=== PATIENT | female | born 1930 | race Caucasian/White ===

== ENCOUNTER 2017-06-18 14:48 | Inpatient (IN) | payer BC, MEDICARE ==
[~2017-06-18] VITALS: Ht 142.2 cm; Wt 51.0 kg
[2017-06-18] VITALS (11 sets, daily range): BP systolic 150–174; BP diastolic 68–103; PULSE 50–101; RESP 16–24; TEMP 97.9–98.6; O2SAT 92–97
[~2017-06-18 14:48] MED LIST: ASPI81TA45 PO; CENTTAB16 PO; COZA50TA PO; DOCU1CAP39 PO; DOXY100 PO; FERR324T PO; FURO20 PO; HYDR200T42 PO; LEVS0.124 SL; LORTA5 PO; PRED10 PO; PROT40TA PO; ROSU5 PO; SYNT88TA PO; TOPR50TA PO
[2017-06-18] MEDS ORDERED: METFORMIN HOLD POST IV CONTRAST SCH (14:51)
[2017-06-18] MEDS ORDERED: FUROSEMIDE 40 MG/4 ML VIAL IV PUSH ONE (15:30)
[2017-06-18 15:43] LABS: AUTOMATED NEUTROPHIL # 4.6 TH/MM3 (1.8-7.7); BASOPHIL % 0.3 % (0.0-2.0); EOSINOPHIL % 0.1 % (0.0-4.0); HEMATOCRIT 32.9 % (35.0-46.0); HEMO FLAGS DIFF FINAL; LYMPH % 10.4 % (9.0-44.0); LYMPHOCYTE # 0.6 TH/MM3 (1.0-4.8); MEAN CELL VOLUME 90.9 FL (80.0-100.0); MEAN CORPUSCULAR HEMOGLOBIN 30.5 PG (27.0-34.0); MEAN CORPUSCULAR HGB CONC 33.6 % (32.0-36.0); NEUT % 80.2 % (16.0-70.0); PLATELET COUNT 303 TH/MM3 (150-450); RED BLOOD COUNT 3.62 MIL/MM3 (4.00-5.30); RED CELL DISTRIBUTION WIDTH 13.6 % (11.6-17.2); WHITE BLOOD COUNT 5.7 TH/MM3 (4.0-11.0)
[2017-06-18] MEDS ORDERED: FURO40TA PO (15:51)
[2017-06-18] MEDS ORDERED: APIX2.5T PO (15:51)
[2017-06-18] MEDS ORDERED: COZA25TA PO (15:51)
[2017-06-18] MEDS ORDERED: PLAQ200T PO (15:51)
[2017-06-18] MEDS ORDERED: AMIO200T PO (15:51)
--- NOTE | 2017-06-18 15:55 | RADRPT ---
EXAM DATE/TIME: 06/18/2017 15:39 [place] COMPARISON: CHEST SINGLE AP, June 20, 2015, 4:51. INDICATIONS : Short of breath MEDICAL HISTORY : Congestive heart failure. SURGICAL HISTORY : Pacemaker. ENCOUNTER: Initial ACUITY: 3 days PAIN SCORE: 0/10 LOCATION: chest FINDINGS: A single view of the chest demonstrates the cardiac silhouette remains enlarged. Lung volumes are dim inished. There is a bipolar left subclavian pacer in good position. Aorta remains tortuous. Mild pulm onary vascular congestion.. Osseous structures are intact. CONCLUSION: The heart is slightly enlarged. Small one by. Mild pulmonary vascular congestion increased since the 2014 exam. Jamey Peters MD on June 18, 2017 at 15:52 Board Certified Radiologist. This report was verified electronically.
[2017-06-18 16:04] LABS: ALT (GPT) 38 U/L (10-53); ANION GAP 10 MEQ/L (5-15); AST (GOT) 40 U/L (15-37); BICARBONATE 23.5 MEQ/L (21.0-32.0); BLOOD UREA NITROGEN 26 MG/DL (7-18); CHLORIDE 94 MEQ/L (98-107); GLOMERULAR FILTRATION RATE 31 ML/MIN (>89); POTASSIUM 3.6 MEQ/L (3.5-5.1); SODIUM (NA) 127 MEQ/L (136-145)
[2017-06-18 16:08] LABS: ALKALINE PHOSPHATASE 108 U/L (45-117); TOTAL BILIRUBIN ADULT 0.6 MG/DL (0.2-1.0)
[2017-06-18] MEDS ORDERED: ASPIRIN 81 MG CHEW TAB CHEW ONE (16:30)
--- NOTE | 2017-06-18 17:19 | PD ---
HPI Chief Complaint: Respiratory Symptoms Time Seen by Provider: 15:02 Travel History International Travel<30 days: No Contact w/Intl Traveler<30days: No Traveled to known affect area: No History of Present Illness HPI This is an 87-year-old female who presents to the emergency department with increasing shortness of breath and lower extremity swelling that's been going on for 4 days, constant, severe to the point where she is been unable to walk a short distance without getting very short of breath. She is to sleep on multiple pillows at night. Her son took her to Dr. Krishnan's office and they increased her Lasix from 20 mg daily to 20 mg twice a day however she doesn't feel like her urine has been responding and her swelling has gotten worse. She denies any chest pain. PFSH Past Medical History Hx Anticoagulant Therapy: Yes Anemia: Yes Arthritis: Yes (OSTEOARTHRITIS) Anxiety: No Depression: No Cancer: No Cardiovascular Problems: Yes High Cholesterol: Yes Chemotherapy: No Cerebrovascular Accident: Yes Diabetes: No Diminished Hearing: No GERD: Yes (SCHOTZKI SYNDROME) Genitourinary: Yes (RETAINS URINE.SEES UROLOGIST EVERY 2 MONTHS) Hypertension: Yes Immune Disorder: Yes (Lupus) Implanted Vascular Access Dvce: No Musculoskeletal: Yes Psychiatric: No Reproductive: No Respiratory: No Immunizations Current: Yes Radiation Therapy: No Thyroid Disease: Yes Tetanus Vaccination: > 5 Years Influenza Vaccination: Yes Menopausal: Yes : 2 Para: 2 Dilation and Curettage (D&C): Yes Past Surgical History Appendectomy: Yes Cardiac Surgery: Yes (PACEMAKER- JAN 2014) Coronary Stent: Yes (X 1) Gynecologic Surgery: Yes (R ovary removed and tube removed) Pacemaker: No Other Surgery: Yes (URETHRAL DILITATION) Social History Alcohol Use: No Tobacco Use: No Substance Use: No Allergies-Medications (Allergen,Severity, Reaction): Coded Allergies: nitrofurantoin (Unverified Allergy, Severe, SWELLING, 06/18/17) nortriptyline (Unverified Allergy, Severe, RASH, 06/18/17) Reported Meds & Prescriptions Reported Meds & Active Scripts Active Reported Furosemide 40 Mg Tab 20 Mg PO BID Plaquenil (Hydroxychloroquine Sulfate) 200 Mg Tab 200 Mg PO DAILY Take with food Cozaar (Losartan Potassium) 25 Mg Tab 25 Mg PO DAILY Amiodarone (Amiodarone HCl) 200 Mg Tab 200 Mg PO DAILY Eliquis (Apixaban) 2.5 Mg Tab 2.5 Mg PO BID Review of Systems Except as stated in HPI: all other systems reviewed are Neg Physical Exam Narrative GENERAL: Frail elderly female in no acute distress SKIN: Focused skin assessment warm and dry. HEAD: Atraumatic. Normocephalic. EYES: Pupils equal and round. No injection or drainage. ENT: Moist mucous membranes NECK: Trachea midline. CARDIOVASCULAR: Regular rate and rhythm. No murmur appreciated. 2+ bilateral lower extremity pitting edema. RESPIRATORY: Tachypneic, Rales in the bilateral lung bases GASTROINTESTINAL: Abdomen soft, non-tender, nondistended. MUSCULOSKELETAL: No obvious deformities. NEUROLOGICAL: Awake and alert. No obvious cranial nerve deficits. Moving all extremities. PSYCHIATRIC: Appropriate mood and affect; insight and judgment normal. Data Data Last Documented VS Vital Signs Date Time Temp Pulse Resp B/P (MAP) Pulse Ox O2 Delivery O2 Flow Rate FiO2 06/18/17 17:04 70 158/71 (100) 96 Nasal Cannula 06/18/17 16:51 20 06/18/17 15:46 2.00 06/18/17 14:49 98.6 Orders Orders Complete Blood Count With Diff (06/18/17 15:16) Comprehensive Metabolic Panel (06/18/17 15:16) Troponin I (06/18/17 15:16) B-Type Natriuretic Peptide (06/18/17 15:16) Electrocardiogram (06/18/17 ) Chest, Single Ap (06/18/17 ) ^ Insert Iv (06/18/17 15:16) Furosemide Inj (Lasix Inj) (06/18/17 15:30) Aspirin Chew (Aspirin Chew) (06/18/17 16:30) Admit Order (Ed Use Only) (06/18/17 17:31) Labs Laboratory Tests Test 06/18/17 15:30 White Blood Count 5.7 TH/MM3 Red Blood Count 3.62 MIL/MM3 Hemoglobin 11.0 GM/DL Hematocrit 32.9 % Mean Corpuscular Volume 90.9 FL Mean Corpuscular Hemoglobin 30.5 PG Mean Corpuscular Hemoglobin Concent 33.6 % Red Cell Distribution Width 13.6 % Platelet Count 303 TH/MM3 Mean Platelet Volume 8.0 FL Neutrophils (%) (Auto) 80.2 % Lymphocytes (%) (Auto) 10.4 % Monocytes (%) (Auto) 9.0 % Eosinophils (%) (Auto) 0.1 % Basophils (%) (Auto) 0.3 % Neutrophils # (Auto) 4.6 TH/MM3 Lymphocytes # (Auto) 0.6 TH/MM3 Monocytes # (Auto) 0.5 TH/MM3 Eosinophils # (Auto) 0.0 TH/MM3 Basophils # (Auto) 0.0 TH/MM3 CBC Comment DIFF FINAL Differential Comment Blood Urea Nitrogen 26 MG/DL Creatinine 1.58 MG/DL Random Glucose 164 MG/DL Total Protein 6.7 GM/DL Albumin 3.4 GM/DL Calcium Level 8.2 MG/DL Alkaline Phosphatase 108 U/L Aspartate Amino Transf (AST/SGOT) 40 U/L Alanine Aminotransferase (ALT/SGPT) 38 U/L Total Bilirubin 0.6 MG/DL Sodium Level 127 MEQ/L Potassium Level 3.6 MEQ/L Chloride Level 94 MEQ/L Carbon Dioxide Level 23.5 MEQ/L Anion Gap 10 MEQ/L Estimat Glomerular Filtration Rate 31 ML/MIN Troponin I 0.13 NG/ML B-Type Natriuretic Peptide 1846 PG/ML MDM Medical Decision Making Medical Screen Exam Complete: Yes Emergency Medical Condition: Yes Interpretation(s) Hypertension, hypoxia mild anemia hyponatremia renal insufficiency troponin .13 similar to prior bnp 1846 elevated from prior Last 24 hours Impressions Chest X-Ray 06/18/17 0000 Signed Impressions: Service Date/Time: Sunday, June 18, 2017 15:39 - CONCLUSION: The heart is slightly enlarged. Small one by. Mild pulmonary vascular congestion increased since the 2014 exam. Jamey Peters MD Differential Diagnosis congestive heart failure, myocardial infarction, electrolyte abnormality Narrative Course This is an 87-year-old female who presents to the emergency department with congestive heart failure exacerbation. She comes in with worsening dyspnea on exertion despite having increased her diuretic earlier this week. Labs demonstrate renal insufficiency, a BNP of 1800, and a chronic troponin elevation. She also is hyponatremic and the patient is weak and has poor exertional tolerance and energy. She was given 40 mg of IV Lasix in the emergency department. She will be admitted for continued volume and electrolyte management. Physician Communication Physician Communication Discussed with Dr. north Diagnosis Primary Impression: Hyponatremia Additional Impression: Congestive heart failure Qualified Codes: I50.9 - Heart failure, unspecified Admitting Information Admitting Physician Requests: it Jaz Ivy MD Jun 18, 2017 17:19
[2017-06-18] MEDS ORDERED: SODIUM CHLORIDE 0.9% FLUSH 10 ML FLUSH IV FLUSH PRN (17:45)
--- NOTE | 2017-06-18 18:43 | HHI.HP ---
[facility] Bruno Seymour MD Admission Diagnosis volume overload, hyponatremia Diagnoses: Chief Complaint: Fluid overload, shortness of breath Travel History International Travel<30 Days: No Contact w/Intl Traveler <30 Da: No Traveled to Known Affected Are: No History of Present Illness 87-year-old female with a medical history significant for coronary artery disease status post stent placement, atrial fibrillation, pacemaker placement, CHF, osteoarthritis, hypertension, and lupus. The patient presented to the hospital with increasing bilateral lower extremity swelling, weight gain, shortness of breath, extreme weakness to the point that she is unable to walk without getting severely short of breath. She is using multiple pillows at night. For the past few weeks, she has been having issues with worsening upper back pain. She has seen her primary care doctor who ordered an x-ray but she does not know the results. Her primary care physician increased her Lasix to 20 mg twice a day but she did not respond to it and continued to have scant urination, increasing swelling and shortness of breath. Workup in the emergency room revealed BNP of 1800. Chest X-ray consistent with heart failure. Patient also found to be hyponatremic. The patient's son was present for the evaluation. Review of Systems Constitutional: COMPLAINS OF: Weight gain, DENIES: Fever, Chills Respiratory: COMPLAINS OF: Shortness of breath, DENIES: Cough Cardiovascular: COMPLAINS OF: Dyspnea on Exertion, Lower Extremity Edema, Orthopnea, DENIES: Chest pain, Palpitations Gastrointestinal: DENIES: Nausea, Vomiting Genitourinary: DENIES: Dysuria Musculoskeletal: COMPLAINS OF: Joint pain, Back pain Except as stated in HPI: all other systems reviewed are Neg Past Family Social History Past Medical History Coronary artery disease status post stent placement Pacemaker placement Atrial fibrillation Osteoarthritis Lupus Urinary retention requiring urethral dilation every couple of months Hypertension Past Surgical History Appendectomy Pacemaker placement Resection of an ovarian abnormality. Reported Medications Reported Meds & Active Scripts Active Reported Furosemide 40 Mg Tab 20 Mg PO BID Plaquenil (Hydroxychloroquine Sulfate) 200 Mg Tab 200 Mg PO DAILY Take with food Cozaar (Losartan Potassium) 25 Mg Tab 25 Mg PO DAILY Amiodarone (Amiodarone HCl) 200 Mg Tab 200 Mg PO DAILY Eliquis (Apixaban) 2.5 Mg Tab 2.5 Mg PO BID Allergies: Coded Allergies: nitrofurantoin (Unverified Allergy, Severe, SWELLING, 06/18/17) nortriptyline (Unverified Allergy, Severe, RASH, 06/18/17) Family History Reviewed and found to be noncontributory. Social History No history of tobacco or alcohol use. Physical Exam Vital Signs Vital Signs Date Time Temp Pulse Resp B/P (MAP) Pulse Ox O2 Delivery O2 Flow Rate FiO2 06/18/17 17:04 70 158/71 (100) 96 Nasal Cannula 06/18/17 16:51 50 20 161/74 (103) 96 Room Air 06/18/17 16:50 96 06/18/17 15:46 82 24 174/83 (113) 93 Nasal Cannula 2.00 06/18/17 15:20 85 79 97 Nasal Cannula 2.00 06/18/17 15:20 82 20 173/75 (107) 97 Nasal Cannula 2.00 06/18/17 14:49 98.6 81 20 162/68 (99) 92 Physical Exam GENERAL: Elderly and frail female. Gets short of breath with long sentences. SKIN: No rashes, ecchymoses or lesions. Cool and dry. HEAD: Atraumatic. Normocephalic. No temporal or scalp tenderness. EYES: Pupils equal round and reactive. Extraocular motions intact. No scleral icterus. No injection or drainage. ENT: Nose without drainage. Throat without erythema, tonsillar hypertrophy or exudate. Uvula midline. Airway patent. NECK: Trachea midline. No JVD or lymphadenopathy. Supple, nontender, no meningeal signs. CARDIOVASCULAR: Regular rate and rhythm. 3/6 EMMIE best heard at the apex. RESPIRATORY: Good respiratory effort. Bilateral basal crackles otherwise clear to auscultation. No wheezing. GASTROINTESTINAL: Abdomen soft, non-tender, nondistended. No hepato-splenomegaly , or palpable masses. No guarding. MUSCULOSKELETAL: 2+ bilateral lower extremity edema. No calf tenderness. Negative Homans sign bilaterally. Scoliosis noted. Some tenderness to palpation over the paraspinous muscles along the thoracic area. NEUROLOGICAL: Awake and alert. Cranial nerves II through XII intact. Motor and sensory grossly within normal limits. Five out of 5 muscle strength in all muscle groups. Normal speech. Laboratory Laboratory Tests Test 06/18/17 15:30 White Blood Count 5.7 Red Blood Count 3.62 Hemoglobin 11.0 Hematocrit 32.9 Mean Corpuscular Volume 90.9 Mean Corpuscular Hemoglobin 30.5 Mean Corpuscular Hemoglobin Concent 33.6 Red Cell Distribution Width 13.6 Platelet Count 303 Mean Platelet Volume 8.0 Neutrophils (%) (Auto) 80.2 Lymphocytes (%) (Auto) 10.4 Monocytes (%) (Auto) 9.0 Eosinophils (%) (Auto) 0.1 Basophils (%) (Auto) 0.3 Neutrophils # (Auto) 4.6 Lymphocytes # (Auto) 0.6 Monocytes # (Auto) 0.5 Eosinophils # (Auto) 0.0 Basophils # (Auto) 0.0 CBC Comment DIFF FINAL Differential Comment Blood Urea Nitrogen 26 Creatinine 1.58 Random Glucose 164 Total Protein 6.7 Albumin 3.4 Calcium Level 8.2 Alkaline Phosphatase 108 Aspartate Amino Transf (AST/SGOT) 40 Alanine Aminotransferase (ALT/SGPT) 38 Total Bilirubin 0.6 Sodium Level 127 Potassium Level 3.6 Chloride Level 94 Carbon Dioxide Level 23.5 Anion Gap 10 Estimat Glomerular Filtration Rate 31 Troponin I 0.13 B-Type Natriuretic Peptide 1846 Result Diagram: 06/18/17 1530 06/18/17 1530 Imaging Last Impressions Chest X-Ray 06/18/17 0000 Signed Impressions: Service Date/Time: Sunday, June 18, 2017 15:39 - CONCLUSION: The heart is slightly enlarged. Small one by. Mild pulmonary vascular congestion increased since the 2014 exam. MD Zari Hookeri VTE Risk Assessment Caprini VTE Risk Assessment: Mod/High Risk (score >= 2) Caprini Risk Assessment Model Point Value = 1 Point Value = 2 Point Value = 3 Point Value = 5 Age 41-60 Minor surgery BMI > 25 kg/m2 Swollen legs Varicose veins or History of unexplained or recurrent spontaneous Oral contraceptives or hormone replacement Sepsis (< 1 month) Serious lung disease, including pneumonia (< 1 month) Abnormal pulmonary function Acute myocardial infarction Congestive heart failure (< 1 month) History of inflammatory bowel disease Medical patient at bed rest Age 61-74 Arthroscopic surgery Major open surgery (> 45 min) Laparoscopic surgery (> 45 min) Malignancy Confined to bed (> 72 hours) Immobilizing plaster cast Central venous access Age >= 75 History of VTE Family history of VTE Factor V Leiden Prothrombin [id number] Lupus anticoagulant Anticardiolipin antibodies Elevated serum homocysteine Heparin-induced thrombocytopenia Other congenital or acquired thrombophilia Stroke (< 1 month) Elective arthroplasty Hip, pelvis, or leg fracture Acute spinal cord injury (< 1 month) Prophylaxis Regimen Total Risk Factor Score Risk Level Prophylaxis Regimen 0-1 Low Early ambulation 2 Moderate Order ONE of the following: *Sequential Compression Device (SCD) *Heparin 5000 units SQ BID 3-4 Higher Order ONE of the following medications: *Heparin 5000 units SQ TID *Enoxaparin/Lovenox 40 mg SQ daily (WT < 150 kg, CrCl > 30 mL/min) *Enoxaparin/Lovenox 30 mg SQ daily (WT < 150 kg, CrCl > 10-29 mL/min) *Enoxaparin/Lovenox 30 mg SQ BID (WT < 150 kg, CrCl > 30 mL/min) AND/OR *Sequential Compression Device (SCD) 5 or more Highest Order ONE of the following medications: *Heparin 5000 units SQ TID (Preferred with Epidurals) *Enoxaparin/Lovenox 40 mg SQ daily (WT < 150 kg, CrCl > 30 mL/min) *Enoxaparin/Lovenox 30 mg SQ daily (WT < 150 kg, CrCl > 10-29 mL/min) *Enoxaparin/Lovenox 30 mg SQ BID (WT < 150 kg, CrCl > 30 mL/min) AND *Sequential Compression Device (SCD) Assessment and Plan Problem List: (1) Acute on chronic systolic heart failure ICD Code: I50.23 - Acute on chronic systolic (congestive) heart failure (2) Hyponatremia ICD Code: E87.1 - Hyponatremia Status: Acute (3) Back pain ICD Code: M54.9 - Dorsalgia, unspecified Status: Acute (4) Lupus (systemic lupus erythematosus) ICD Code: M32.9 - Lupus (systemic lupus erythematosus) Status: Acute (5) Hypertension ICD Code: I10 - Hypertension Status: Acute (6) Generalized weakness ICD Code: R53.1 - Generalized weakness Status: Acute Assessment and Plan 87-year-old female being admitted for acute on chronic systolic CHF exacerbation , hyponatremia, and fluid overload. Acute on chronic systolic CHF exacerbation: Last documented EF in the EMR in the EMR in 2015 was 45%. Increasing edema, weight gain and worsening shortness of breath. BNP 1800 on admission. Chest x-ray consistent with CHF - IV Lasix 40 mg twice a day. - Strict I/O - Continue losartan. - Consult the patient's coding quality coordinator, Dr. Horan for assistance. History of atrial fibrillation/pacemaker placement. - Continue Eliquis. On amiodarone. - Cardiology consulted as above. She states her pacemaker was interrogated about a month ago. Defer to cardiology. Hyponatremia: Likely hypervolemic hyponatremia secondary to CHF - Fluid restriction as above. - Continue to trend. Acute on chronic upper back pain: Patient reports more pain in the upper thoracic region. Likely related to osteoarthritis and degenerative joint disease. - Pain control. - Will reassess if further imaging is needed once she is feeling a little better from the cardiac standpoint. Patient reportedly had x-rays at [facility] but ER physician, Dr. Dhaliwal searched for me but couldn't find them. - PT to evaluate. Lupus: Continue hydroxychloroquine. GI prophylaxis: Stool softener PRN constipation. DVT PPx: Eliquis Code Status DNR. Discussed with patient and her son. Discussed Condition With ER physician, Dr. Ivy DW patient's son at bedside Physician Certification 2 Midnight Certification Type: Admission for Inpatient Services Order for Inpatient Services The services are ordered in accordance with Medicare regulations or non- Medicare payer requirements, as applicable. In the case of services not specified as inpatient-only, they are appropriately provided as inpatient services in accordance with the 2-midnight benchmark. Estimated LOS (days): 3 days is the estimated time the patient will need to remain in the hospital, assuming treatment plan goals are met and no additional complications. Post-Hospital Plan: Not yet determined Valery Morales MD Jun 18, 2017 18:43
[2017-06-18] MEDS ORDERED: SENNOSIDES 8.6 MG TAB PO PRN (18:45)
[2017-06-18] MEDS ORDERED: MAGNESIUM HYDROXIDE SUSP 30 ML CUP PO PRN (18:45)
[2017-06-18] MEDS ORDERED: BISACODYL 10 MG SUPP RECTAL PRN (18:45)
[2017-06-18] MEDS ORDERED: LACTULOSE SYRUP 20 GM/30 ML CUP PO PRN (18:45)
[2017-06-18] MEDS ORDERED: ACETAMINOPHEN 325 MG TAB PO PRN (19:45)
[2017-06-18] MEDS: DOCUSATE SODIUM 50 MG/SENNA 8.6 MG TAB PO SCH (20:52)
[2017-06-18] MEDS: POTASSIUM CHLORIDE 20 MEQ CONTROLLED RELEASE TAB PO SCH (20:52)
[2017-06-18] MEDS: APIXABAN 2.5 MG TABLET PO SCH (22:00)
[2017-06-18] MEDS: SODIUM CHLORIDE 0.9% FLUSH 10 ML FLUSH IV FLUSH SCH (22:00)
[2017-06-18] MEDS: FUROSEMIDE 40 MG/4 ML VIAL IV PUSH SCH (23:12)
[2017-06-19] VITALS (9 sets, daily range): BP systolic 105–147; BP diastolic 54–70; PULSE 71–81; RESP 16–18; TEMP 96.3–97.7; O2SAT 94–98
[2017-06-19 06:05] LABS: BICARBONATE 30.9 MEQ/L (21.0-32.0); POTASSIUM 3.5 MEQ/L (3.5-5.1)
--- NOTE | 2017-06-19 08:39 | MB ---
cc: ZENY LEZAMA MD DATE OF CONSULTATION 06/19/2017 HISTORY This is an 87-year-old woman who was admitted to the hospital with increasing shortness of breath. This has been present for at least the past 10 days to several weeks. She noticed that her weight had been steadily increasing and on Monday notes that she had significant pedal edema. She was seen by her primary care physician who recommended increasing her Lasix to 20 mg twice a day. She did this without any significant change in symptoms and came to the emergency room. In the emergency room she was noted to have significant pedal edema as well as evidence for heart failure on chest x-ray. She has a history of coronary artery disease with PTCA and stenting in the past. She also as an outpatient has been noted to have significant cardiomyopathy with low ejection fraction although no overt failure has been present in the past. She has been told that her electrolytes are abnormal and over the past 2 weeks has been drinking quite a bit of Gatorade to help try to correct that. No chest pain has been present. She has noted some chronic back pain which has been felt to be musculoskeletal secondary to her T-spine. An x-ray at this was also done recently but the results of those are not known to her. PAST MEDICAL HISTORY Otherwise significant for pacemaker implantation. Chronic atrial fibrillation ALLERGIES NITROFURANTOIN. NORTRIPTYLINE. MEDICATIONS 1. Lasix 20 mg twice a day. 2. Plaquenil 200 mg daily. 3. Losartan 25 mg daily. 4. Amiodarone 200 daily. 5. Apixaban 2.5 mg twice a day. PHYSICAL EXAMINATION GENERAL: She is awake and alert. She is in no acute distress. VITAL SIGNS: Her blood pressure is 140/60, pulse is 76 and regular. NECK: There is no neck vein distension. LUNGS: Crackles in both bases. CARDIOVASCULAR: Exam reveals a regular rate and rhythm. There is no murmur. EXTREMITIES: +1 pedal edema. ASSESSMENT AND PLAN 1. She has evidence for congestive failure. She will be given Lasix 40 mg IV b.i.d. and thus far has had a good diuresis. 2. She does have some renal insufficiency and this has actually improved as has her sodium. 3. We will continue present medical regimen. MD JOSELO Kathleen/SSB /8:15 AM /8:27 AM
[2017-06-19] MEDS: DOCUSATE SODIUM 50 MG/SENNA 8.6 MG TAB PO SCH (09:00)
[2017-06-19] MEDS ORDERED: ULOR40TA PO (10:27)
[2017-06-19] MEDS: APIXABAN 2.5 MG TABLET PO SCH (10:30)
[2017-06-19] MEDS: LOSARTAN 25 MG TAB PO SCH (10:30)
[2017-06-19] MEDS: AMIODARONE 200 MG TAB PO SCH (10:31)
[2017-06-19] MEDS: POTASSIUM CHLORIDE 20 MEQ CONTROLLED RELEASE TAB PO SCH (10:31)
[2017-06-19] MEDS: HYDROXYCHLOROQUINE SULFATE 200 MG TAB PO SCH (10:31)
[2017-06-19] MEDS: FUROSEMIDE 40 MG/4 ML VIAL IV PUSH SCH ×2 (10:32→18:29)
[2017-06-19] MEDS: SODIUM CHLORIDE 0.9% FLUSH 10 ML FLUSH IV FLUSH SCH ×2 (10:32→21:00)
--- NOTE | 2017-06-19 13:44 | HHI.PR ---
Subjective Remarks Patient reports she is feeling better. Responding to diuresis. No chest pressure. Objective Vitals Vital Signs Date Time Temp Pulse Resp B/P (MAP) Pulse Ox O2 Delivery O2 Flow Rate FiO2 06/19/17 12:50 94 21 06/19/17 12:00 97.1 81 18 124/54 (77) 94 06/19/17 08:00 96.3 80 16 147/70 (95) 94 06/19/17 04:32 97.7 76 17 140/64 (89) 96 06/19/17 00:08 97.4 78 17 136/69 (91) 96 06/18/17 20:59 97.9 77 18 156/74 (101) 96 06/18/17 20:53 80 16 161/74 (103) 97 Nasal Cannula 1.00 06/18/17 19:30 82 16 162/77 (105) 96 Nasal Cannula 1.00 06/18/17 18:23 96 Nasal Cannula 1.00 06/18/17 17:04 70 158/71 (100) 96 Nasal Cannula 06/18/17 16:51 50 20 161/74 (103) 96 Room Air 06/18/17 16:50 96 06/18/17 15:46 82 24 174/83 (113) 93 Nasal Cannula 2.00 06/18/17 15:20 85 79 97 Nasal Cannula 2.00 06/18/17 15:20 82 20 173/75 (107) 97 Nasal Cannula 2.00 06/18/17 14:49 98.6 81 20 162/68 (99) 92 I/O 06/18/17 06/18/17 06/18/17 06/19/17 06/19/17 06/19/17 07:00 15:00 23:00 07:00 15:00 23:00 Intake Total 120 ml Output Total 1900 ml Balance -1780 ml Intake Oral 120 ml Output Urine Total 1900 ml # Voids 1 # Bowel Movements 0 Result Diagram: 06/18/17 1530 06/19/17 0438 Objective Remarks GENERAL: Elderly and frail female in no apparent distress. CARDIOVASCULAR: Normal rate and regular rhythm without murmurs, gallops, or rubs. RESPIRATORY: Good respiratory efforts. Bibasal crackles GASTROINTESTINAL: Abdomen soft, non-tender, non-distended. Normal active bowel sounds MUSCULOSKELETAL: Extremities with 1+ bilateral lower extremity edema NEURO: Alert & Oriented x4 to person, place, time, situation. Moves all ext x4 PSYCH: Appropriate mood and affect. A/P Problem List: (1) Acute on chronic systolic heart failure ICD Code: I50.23 - Acute on chronic systolic (congestive) heart failure (2) Hyponatremia ICD Code: E87.1 - Hyponatremia Status: Acute (3) Back pain ICD Code: M54.9 - Dorsalgia, unspecified Status: Acute (4) Lupus (systemic lupus erythematosus) ICD Code: M32.9 - Lupus (systemic lupus erythematosus) Status: Acute (5) Hypertension ICD Code: I10 - Hypertension Status: Acute (6) Generalized weakness ICD Code: R53.1 - Generalized weakness Status: Acute Assessment and Plan 87-year-old female being admitted for acute on chronic systolic CHF exacerbation , hyponatremia, and fluid overload. Acute on chronic systolic CHF exacerbation: Last documented EF in the EMR in the EMR in 2014 was 45%. Increasing edema, weight gain and worsening shortness of breath. BNP 1800 on admission. Chest x-ray consistent with CHF - IV Lasix 40 mg twice a day. - Strict I/O - Continue losartan. -Appreciate roll off driver, Dr. Horan assistance. Continue diuresis. History of atrial fibrillation/pacemaker placement. - Continue Eliquis. On amiodarone. - Cardiology following Hyponatremia: Likely hypervolemic hyponatremia secondary to CHF - Fluid restriction as above. - Improving. Continue to trend. Acute on chronic upper back pain: Patient reports more pain in the upper thoracic region. Likely related to osteoarthritis and degenerative joint disease. - Pain control. Start low-dose [place]. - Will reassess if further imaging is needed once she is feeling a little better from the cardiac standpoint. - PT to evaluate. Lupus: Continue hydroxychloroquine. GI prophylaxis: Stool softener PRN constipation. DVT PPx: Valery Galo MD Jun 19, 2017 13:44
[2017-06-19] MEDS: PANTOPRAZOLE SOD 40 MG DELAYED RELEASE TAB PO SCH (14:47)
--- NOTE | 2017-06-19 17:11 | EKG ---
Date Performed: 06/18/2017 Time Performed: 15:30:06 PTAGE: 87 years EKG: ELECTRONIC ATRIAL PACEMAKER ELECTRONIC VENTRICULAR PACEMAKER Since previous tracing, no sig nificant change noted ABNORMAL RHYTHM ECG PREVIOUS TRACING : 06/18/2015 06.59 DOCTOR: Vishal Flanagan Interpretating Date/Time 06/19/2017 17:10:05
[2017-06-19] MEDS: ACETAMINOPHEN/HYDROcodone 325 MG/5 MG TAB PO PRN (19:04)
[2017-06-20] VITALS (9 sets, daily range): BP systolic 95–146; BP diastolic 47–57; PULSE 71–81; RESP 16–18; TEMP 96.5–98; O2SAT 96–100
[2017-06-20] MEDS: POTASSIUM CHLORIDE 20 MEQ CONTROLLED RELEASE TAB PO SCH ×3 (00:05→19:59)
[2017-06-20] MEDS: DOCUSATE SODIUM 50 MG/SENNA 8.6 MG TAB PO SCH ×3 (00:05→19:58)
[2017-06-20] MEDS: APIXABAN 2.5 MG TABLET PO SCH ×3 (00:06→19:58)
--- NOTE | 2017-06-20 07:38 | PD.CARD.PN ---
Subjective Subjective Remarks Back pain present this morning. Relieved with pain meds last night. Breathing improved. Objective Medications Current Medications Medications (Trade) Dose Ordered Sig/Harley Route Start Time Stop Time Status Last Admin (Cordarone) 200 mg DAILY PO 06/19/17 09:00 06/19/17 10:31 (Eliquis) 2.5 mg BID PO 06/18/17 21:00 06/20/17 00:06 (Plaquenil) 200 mg DAILY PO 06/19/17 09:00 06/19/17 10:31 (Cozaar) 25 mg DAILY PO 06/19/17 09:00 06/19/17 10:30 (NS Flush) 2 ml BID IV FLUSH 06/18/17 21:00 06/19/17 21:00 (NS Flush) 2 ml UNSCH PRN IV FLUSH 06/18/17 17:45 (KCl) 20 meq BID PO 06/18/17 21:00 06/20/17 00:05 (Lasix Inj) 40 mg BID@,18 IV PUSH 06/18/17 23:00 06/19/17 18:29 (Maye-Colace) 1 tab BID PO 06/18/17 21:00 06/20/17 00:05 (Milk Of Magnesia Liq) 30 ml Q12H PRN PO 06/18/17 18:45 (Senokot) 17.2 mg Q12H PRN PO 06/18/17 18:45 (Dulcolax Supp) 10 mg DAILY PRN RECTAL 06/18/17 18:45 (Lactulose Liq) 30 ml DAILY PRN PO 06/18/17 18:45 (Tylenol) 650 mg Q4H PRN PO 06/18/17 19:45 06/18/17 20:52 ([place] 5-325 Mg) 1 tab Q6H PRN PO 06/19/17 11:15 06/19/17 19:04 (Protonix) 40 mg DAILY PO 06/19/17 13:45 06/19/17 14:47 (Miralax) 17 gm DAILY PO 06/20/17 09:00 Vital Signs / I&O Vital Signs Date Time Temp Pulse Resp B/P (MAP) Pulse Ox O2 Delivery O2 Flow Rate FiO2 06/20/17 04:00 97.6 76 18 145/57 (86) 97 06/20/17 00:00 98.0 78 18 138/55 (82) 100 06/19/17 20:00 97.0 79 18 128/56 (80) 98 06/19/17 17:49 94 Nasal Cannula 21 06/19/17 16:00 97.1 80 18 105/60 (75) 96 06/19/17 12:50 94 21 06/19/17 12:00 97.1 81 18 124/54 (77) 94 06/19/17 10:25 71 06/19/17 08:00 96.3 80 16 147/70 (95) 94 I/O 06/19/17 06/19/17 06/19/17 06/20/17 06/20/17 06/20/17 07:00 15:00 23:00 07:00 15:00 23:00 Intake Total 120 ml 240 ml Output Total 1900 ml 1100 ml 1450 ml Balance -1780 ml -860 ml -1450 ml Intake Oral 120 ml 240 ml Output Urine Total 1900 ml 1100 ml 1450 ml # Bowel Movements 0 1 Physical Exam Lungs clear RRR no murmur Assessment and Plan Assessment and Plan Good diuresis. Clinically improved. Will check BMP and chest x-ray Hector Horan MD Jun 20, 2017 07:38
[2017-06-20] MEDS: SODIUM CHLORIDE 0.9% FLUSH 10 ML FLUSH IV FLUSH SCH ×2 (09:00→19:57)
--- NOTE | 2017-06-20 09:00 | RADRPT ---
EXAM DATE/TIME: 06/20/2017 08:02 [place] COMPARISON: CHEST SINGLE AP, June 18, 2017, 15:39. INDICATIONS : Congestive heart failure. MEDICAL HISTORY : Congestive heart failure. SURGICAL HISTORY : Pacemaker. ENCOUNTER: Subsequent ACUITY: 4 - 6 days PAIN SCORE: 0/10 LOCATION: Bilateral chest FINDINGS: A single view of the chest demonstrates the cardiac silhouette remains widened. The aorta is quite to rtuous. The left subclavian bipolar pacer in good position. Mild pulmonary vascular congestion. Indis tinctness of both hemidiaphragms suggestive of small pleural effusions. No visible pneumothorax. Oss eous structures are intact. CONCLUSION: Mild pulmonary vascular congestion remains. Jamey Peters MD on June 20, 2017 at 8:56 Board Certified Radiologist. This report was verified electronically.
[2017-06-20] MEDS: HYDROXYCHLOROQUINE SULFATE 200 MG TAB PO SCH (09:21)
[2017-06-20] MEDS: PANTOPRAZOLE SOD 40 MG DELAYED RELEASE TAB PO SCH (09:21)
[2017-06-20] MEDS: POLYETHYLENE GLYCOL 17 GM PKG PO SCH (09:21)
[2017-06-20] MEDS: LOSARTAN 25 MG TAB PO SCH (09:21)
[2017-06-20] MEDS: FUROSEMIDE 40 MG/4 ML VIAL IV PUSH SCH ×2 (09:21→18:27)
[2017-06-20] MEDS: AMIODARONE 200 MG TAB PO SCH (09:25)
[2017-06-20] MEDS: ACETAMINOPHEN/HYDROcodone 325 MG/5 MG TAB PO PRN (09:46)
--- NOTE | 2017-06-20 10:03 | HHI.PR ---
Subjective Remarks Feeling better. Back pain controlled. No SOB at rest. No chest pain. Admits that she needs assistance with activities. PT recs rehab. Objective Vitals Vital Signs Date Time Temp Pulse Resp B/P (MAP) Pulse Ox O2 Delivery O2 Flow Rate FiO2 06/20/17 08:00 97.2 71 16 146/55 (85) 99 06/20/17 04:00 97.6 76 18 145/57 (86) 97 06/20/17 00:00 98.0 78 18 138/55 (82) 100 06/19/17 20:00 97.0 79 18 128/56 (80) 98 06/19/17 17:49 94 Nasal Cannula 21 06/19/17 16:00 97.1 80 18 105/60 (75) 96 06/19/17 12:50 94 21 06/19/17 12:00 97.1 81 18 124/54 (77) 94 06/19/17 10:25 71 I/O 06/19/17 06/19/17 06/19/17 06/20/17 06/20/17 06/20/17 07:00 15:00 23:00 07:00 15:00 23:00 Intake Total 120 ml 240 ml Output Total 1900 ml 1100 ml 1450 ml Balance -1780 ml -860 ml -1450 ml Intake Oral 120 ml 240 ml Output Urine Total 1900 ml 1100 ml 1450 ml # Bowel Movements 0 1 Result Diagram: 06/18/17 1530 06/19/17 0438 Objective Remarks GENERAL: Elderly and frail female in no apparent distress. CARDIOVASCULAR: Normal rate and regular rhythm without murmurs, gallops, or rubs. RESPIRATORY: Good respiratory efforts. Bibasal crackles GASTROINTESTINAL: Abdomen soft, non-tender, non-distended. Normal active bowel sounds MUSCULOSKELETAL: Extremities with 1+ bilateral lower extremity edema NEURO: Alert & Oriented x4 to person, place, time, situation. Moves all ext x4 PSYCH: Appropriate mood and affect. A/P Problem List: (1) Acute on chronic systolic heart failure ICD Code: I50.23 - Acute on chronic systolic (congestive) heart failure (2) Hyponatremia ICD Code: E87.1 - Hyponatremia Status: Acute (3) Back pain ICD Code: M54.9 - Dorsalgia, unspecified Status: Acute (4) Lupus (systemic lupus erythematosus) ICD Code: M32.9 - Lupus (systemic lupus erythematosus) Status: Acute (5) Hypertension ICD Code: I10 - Hypertension Status: Acute (6) Generalized weakness ICD Code: R53.1 - Generalized weakness Status: Acute Assessment and Plan 87-year-old female being admitted for acute on chronic systolic CHF exacerbation , hyponatremia, and fluid overload. Acute on chronic systolic CHF exacerbation: Last documented EF in the EMR in the EMR in 2014 was 45%. Increasing edema, weight gain and worsening shortness of breath. BNP 1800 on admission. Chest x-ray consistent with CHF. Responding to diuretics. - IV Lasix 40 mg twice a day. - Strict I/O - Continue losartan. - Appreciate mill tender washing, Dr. Horan assistance. Continue diuresis. - Continue IV diuretics for one more day. Can probably transition to PO in AM and DC to rehab. History of atrial fibrillation/pacemaker placement. - Continue Eliquis. On amiodarone. - Cardiology following Hyponatremia: Likely hypervolemic hyponatremia secondary to CHF - Fluid restriction as above. - Improving. Continue to trend. Acute on chronic upper back pain: Patient reports more pain in the upper thoracic region. Likely related to osteoarthritis and degenerative joint disease. - Pain controlled with low-dose [place]. - Continue PT. Outpatient F/U Lupus: Continue hydroxychloroquine. GI prophylaxis: Stool softener PRN constipation. DVT PPx: Eliquis Discharge Planning Probable DC tomorrow to [place] vs SNF. CM consulted. Valery Morales MD Jun 20, 2017 10:03
[2017-06-20 12:33] LABS: BICARBONATE 30.4 MEQ/L (21.0-32.0); POTASSIUM 3.7 MEQ/L (3.5-5.1)
--- NOTE | 2017-06-20 17:49 | ECHRPT ---
Indication: Heart Failure CONCLUSIONS Mildly dilated left ventricle. The left ventricular systolic function is qgqghivx-zs-bioqsbq reduced with an estimated ejection fra ction in the range of 35-40%. Mild mitral valve regurgitation. Hwve-ab-nvzbcnhk aortic valve regurgitation. There is moderate tricuspid regurgitation. There is estimated zegotykx-nk-mmyrtj pulmonary hypertension present (61 mmHg). BP: 147 / 70 HR: 80 Rhythm: MEASUREMENTS (Male / Female) Normal Values Technical Quality:Good 2D ECHO LV Diastolic Diameter PLAX 4.9 cm 4.2 - 5.9 / 3.9 - 5.3 cm LV Systolic Diameter PLAX 4.1 cm IVS Diastolic Thickness 1.0 cm 0.6 - 1.0 / 0.6 - 0.9 cm LVPW Diastolic Thickness 0.6 cm 0.6 - 1.0 / 0.6 - 0.9 cm LV Relative Wall Thickness 0.3 RV Internal Dim ED PLAX 2.1 cm LA Systolic Diameter LX 4.6 cm 3.0 - 4.0 / 2.7 - 3.8 cm LV Ejection Fraction MOD 4C 33.6 % LV Cardiac Index MOD 4C 2200.7 cm/minm LV Ejection Fraction 4C AL 34.2 % LV Cardiac Index 4C AL 2430.3 cm/minm M-MODE Aortic Root Diameter MM 3.3 cm AV Cusp Separation MM 1.8 cm DOPPLER AV Peak Velocity 131.0 cm/s AV Peak Gradient 6.9 mmHg AI Peak Velocity 414.0 cm/s AI Peak Gradient 68.6 mmHg AI Pressure Half Time 317.0 ms LVOT Peak Velocity 75.0 cm/s LVOT Peak Gradient 2.3 mmHg MV Peak Velocity 130.0 cm/s MV Peak Gradient 6.8 mmHg MV Mean Velocity 74.9 cm/s MV Mean Gradient 3.0 mmHg Mitral E Point Velocity 114.0 cm/s Mitral A Point Velocity 52.8 cm/s Mitral E to A Ratio 2.2 TR Peak Velocity 356.0 cm/s TR Peak Gradient 50.7 mmHg Right Atrial Pressure 10.0 mmHg Pulmonary Artery Systolic Pressu 60.7 mmHg Right Ventricular Systolic Press 60.7 mmHg FINDINGS LEFT VENTRICLE Mildly dilated left ventricle. Wall thickness is normal. The left ventricular systolic function is drevqzaw-am-bbbkyfq reduced with an estimated ejection fra ction in the range of 35-40%. RIGHT VENTRICLE The right ventricular size is normal. The right ventricular systoilc function is mildly decreased. LEFT ATRIUM The left atrial size is mildly dilated. RIGHT ATRIUM The right atrial size is normal. ATRIAL SEPTUM Normal atrial septal thickness. AORTA The aortic root and proximal ascending aorta are normal in size on limited imaging. MITRAL VALVE Mild thickening of the mitral valve leaflets. Moderate mitral annular calcification. Mild mitral valve regurgitation. No mitral valve stenosis. AORTIC VALVE Trileaflet aortic valve. Jbkr-sx-sbzknsxs aortic valve regurgitation. Aortic valve sclerosis is present. No aortic valve stenosis. TRICUSPID VALVE Structurally normal tricuspid valve. There is moderate tricuspid regurgitation. No tricuspid valve stenosis. There is estimated rvezqdmr-dr-zjvzqf pulmonary hypertension present (61 mmHg). PULMONARY VALVE No pulmonary valve regurgitation or stenosis. VESSELS The inferior vena cava is normal in size. PERICARDIUM There is a trivial pericardial effusion present. Jan Gomez DO (Electronically Signed) Final Date:20 June 2017 17:47
[2017-06-21] VITALS (14 sets, daily range): BP systolic 100–135; BP diastolic 43–62; PULSE 68–85; RESP 16–20; TEMP 96.4–98.2; O2SAT 95–97
--- NOTE | 2017-06-21 07:55 | PD.CARD.PN ---
Subjective Subjective Remarks Breathing improved. Objective Medications Current Medications Medications (Trade) Dose Ordered Sig/Harley Route Start Time Stop Time Status Last Admin (Cordarone) 200 mg DAILY PO 06/19/17 09:00 06/20/17 09:25 (Eliquis) 2.5 mg BID PO 06/18/17 21:00 06/20/17 19:58 (Plaquenil) 200 mg DAILY PO 06/19/17 09:00 06/20/17 09:21 (Cozaar) 25 mg DAILY PO 06/19/17 09:00 06/20/17 09:21 (NS Flush) 2 ml BID IV FLUSH 06/18/17 21:00 06/20/17 19:57 (NS Flush) 2 ml UNSCH PRN IV FLUSH 06/18/17 17:45 (KCl) 20 meq BID PO 06/18/17 21:00 06/20/17 19:59 (Lasix Inj) 40 mg BID@,18 IV PUSH 06/18/17 23:00 06/20/17 18:27 (Maye-Colace) 1 tab BID PO 06/18/17 21:00 06/20/17 19:58 (Milk Of Magnesia Liq) 30 ml Q12H PRN PO 06/18/17 18:45 (Senokot) 17.2 mg Q12H PRN PO 06/18/17 18:45 (Dulcolax Supp) 10 mg DAILY PRN RECTAL 06/18/17 18:45 (Lactulose Liq) 30 ml DAILY PRN PO 06/18/17 18:45 (Tylenol) 650 mg Q4H PRN PO 06/18/17 19:45 06/18/17 20:52 ([place] 5-325 Mg) 1 tab Q6H PRN PO 06/19/17 11:15 06/20/17 09:46 (Protonix) 40 mg DAILY PO 06/19/17 13:45 06/20/17 09:21 (Miralax) 17 gm DAILY PO 06/20/17 09:00 06/20/17 09:21 Vital Signs / I&O Vital Signs Date Time Temp Pulse Resp B/P (MAP) Pulse Ox O2 Delivery O2 Flow Rate FiO2 06/21/17 07:36 97.3 68 19 135/61 (85) 96 06/21/17 06:41 71 06/21/17 04:05 97.9 74 16 119/52 (74) 95 06/21/17 04:00 74 06/21/17 00:06 98.2 80 16 121/62 (81) 96 06/20/17 23:00 75 06/20/17 20:10 97.1 78 16 96/47 (63) 96 06/20/17 20:00 77 06/20/17 16:00 96.5 72 16 95/47 (63) 96 06/20/17 13:00 98 06/20/17 12:00 97.0 81 16 101/51 (68) 98 06/20/17 08:00 97.2 71 16 146/55 (85) 99 I/O 06/20/17 06/20/17 06/20/17 06/21/17 06/21/17 06/21/17 07:00 15:00 23:00 07:00 15:00 23:00 Intake Total 250 ml 480 ml 120 ml Output Total 1450 ml 250 ml 1200 ml Balance -1450 ml 250 ml 230 ml -1080 ml Intake Oral 250 ml 480 ml 120 ml Output Urine Total 1450 ml 250 ml 1200 ml # Voids 4 # Bowel Movements 1 0 0 Physical Exam Lungs clear RRR no murmur Laboratory Laboratory Tests Test 06/20/17 11:15 Blood Urea Nitrogen 19 MG/DL Creatinine 1.53 MG/DL Random Glucose 122 MG/DL Calcium Level 8.6 MG/DL Sodium Level 132 MEQ/L Potassium Level 3.7 MEQ/L Chloride Level 94 MEQ/L Carbon Dioxide Level 30.4 MEQ/L Anion Gap 8 MEQ/L Estimat Glomerular Filtration Rate 32 ML/MIN Assessment and Plan Assessment and Plan Good diuresis. Clinically improved. Increase activity Hector Horan MD Jun 21, 2017 07:55
--- NOTE | 2017-06-21 08:29 | HHI.DS ---
Discharge Summary Admission Date Jun 18, 2017 at 17:33 Discharge Date: Jun 22, 2017 Admitting Diagnosis volume overload, hyponatremia (1) Acute on chronic systolic heart failure ICD Code: I50.23 - Acute on chronic systolic (congestive) heart failure (2) Hyponatremia ICD Code: E87.1 - Hyponatremia Status: Acute (3) Back pain ICD Code: M54.9 - Dorsalgia, unspecified Status: Acute (4) Lupus (systemic lupus erythematosus) ICD Code: M32.9 - Lupus (systemic lupus erythematosus) Status: Acute (5) Hypertension ICD Code: I10 - Hypertension Status: Acute (6) Generalized weakness ICD Code: R53.1 - Generalized weakness Status: Acute Procedures None Brief History - From Admission 87-year-old female with a medical history significant for coronary artery disease status post stent placement, atrial fibrillation, pacemaker placement, CHF, osteoarthritis, hypertension, and lupus. The patient presented to the hospital with increasing bilateral lower extremity swelling, weight gain, shortness of breath, extreme weakness to the point that she is unable to walk without getting severely short of breath. She is using multiple pillows at night. For the past few weeks, she has been having issues with worsening upper back pain. She has seen her primary care doctor who ordered an x-ray but she does not know the results. Her primary care physician increased her Lasix to 20 mg twice a day but she did not respond to it and continued to have scant urination, increasing swelling and shortness of breath. Workup in the emergency room revealed BNP of 1800. Chest X-ray consistent with heart failure. Patient also found to be hyponatremic. The patient's son was present for the evaluation. CBC/BMP: 06/18/17 1530 06/20/17 1115 Significant Findings Laboratory Tests Test 06/18/17 15:30 06/19/17 04:38 06/20/17 11:15 06/21/17 07:00 Red Blood Count 3.62 MIL/MM3 (4.00-5.30) Hemoglobin 11.0 GM/DL (11.6-15.3) Hematocrit 32.9 % (35.0-46.0) Neutrophils (%) (Auto) 80.2 % (16.0-70.0) Monocytes (%) (Auto) 9.0 % (0.0-8.0) Lymphocytes # (Auto) 0.6 TH/MM3 (1.0-4.8) Blood Urea Nitrogen 26 MG/DL (7-18) 24 MG/DL (7-18) 19 MG/DL (7-18) Creatinine 1.58 MG/DL (0.50-1.00) 1.48 MG/DL (0.50-1.00) 1.53 MG/DL (0.50-1.00) Random Glucose 164 MG/DL (74-106) 122 MG/DL (74-106) Calcium Level 8.2 MG/DL (8.5-10.1) Aspartate Amino Transf (AST/SGOT) 40 U/L (15-37) Sodium Level 127 MEQ/L (136-145) 132 MEQ/L (136-145) 132 MEQ/L (136-145) Chloride Level 94 MEQ/L (98-107) 93 MEQ/L (98-107) 94 MEQ/L (98-107) Estimat Glomerular Filtration Rate 31 ML/MIN (>89) 33 ML/MIN (>89) 32 ML/MIN (>89) Troponin I 0.13 NG/ML (0.02-0.05) B-Type Natriuretic Peptide 1846 PG/ML (0-100) Imaging Last Impressions Chest X-Ray 06/20/17 0000 Signed Impressions: Service Date/Time: Tuesday, June 20, 2017 08:02 - CONCLUSION: Mild pulmonary vascular congestion remains. Jamey Peters MD PE at Discharge GENERAL: Elderly and frail female in no apparent distress. CARDIOVASCULAR: Normal rate and regular rhythm without murmurs, gallops, or rubs. RESPIRATORY: Good respiratory efforts. Bibasilar crackles GASTROINTESTINAL: Abdomen soft, non-tender, non-distended. Normal active bowel sounds MUSCULOSKELETAL: Extremities with 1+ bilateral lower extremity edema NEURO: Alert & Oriented x4 to person, place, time, situation. Moves all ext x4 PSYCH: Appropriate mood and affect. Hospital Course 87-year-old female being admitted for acute on chronic systolic CHF exacerbation , hyponatremia, and fluid overload. 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 Increasing edema, weight gain and worsening shortness of breath. BNP 1800 on admission. Chest x-ray consistent with CHF. Responding to diuretics. - IV Lasix 40 mg twice a day. - Strict I/O - Continue losartan. - Appreciate beater tender, Dr. Horan assistance. Continue diuresis. - Continue IV diuretics for one more day. Can probably transition to PO in AM and DC to rehab. History of atrial fibrillation/pacemaker placement. - Continue Eliquis. On amiodarone. - Cardiology following Hyponatremia: Likely hypervolemic hyponatremia secondary to CHF - Fluid restriction as above. - Improving. Continue to trend. Acute on chronic upper back pain: Patient reports more pain in the upper thoracic region. Likely related to osteoarthritis and degenerative joint disease. - Pain controlled with low-dose [place]. - Continue PT. Outpatient F/U Lupus: Continue hydroxychloroquine. GI prophylaxis: Stool softener PRN constipation. DVT PPx: Eliquis Pt Condition on Discharge: Stable Discharge Disposition: Disch w/ Home Health Serv Discharge Time: > 30 minutes Discharge Instructions DIET: Follow Instructions for: Heart Healthy Diet Activities you can perform: Regular-No Restrictions Follow up Referrals: Cardiology - 3 Weeks PCP Follow-up - 2-3 Days Continued Medications: Amiodarone (Amiodarone) 200 Mg Tab 200 MG PO DAILY for Regulate Heart Beat, #30 TAB 0 Refills Apixaban (Eliquis) 2.5 Mg Tab 2.5 MG PO BID for Blood Clot Prevention, TAB 0 Refills Febuxostat (Uloric) 40 Mg Tab TAB PO EVERY OTHER DAY Furosemide (Furosemide) 40 Mg Tab 20 MG PO BID, #60 TAB 0 Refills Hydroxychloroquine (Plaquenil) 200 Mg Tab 200 MG PO DAILY, #30 TAB 0 Refills Take with food Losartan (Cozaar) 25 Mg Tab 25 MG PO DAILY for Blood Pressure Management, #30 TAB 0 Refills Roshni Velázquez MD Jun 21, 2017 08:29
--- NOTE | 2017-06-21 08:34 | HHI.FF ---
Face to Face Verification Diagnosis: (1) MIHIR (acute kidney injury) (2) Gastroesophageal reflux (3) Lupus (systemic lupus erythematosus) (4) Hypertension (5) Generalized weakness (6) Congestive heart failure (7) Acute on chronic systolic heart failure (8) Diastolic CHF Physical Therapy Order: Evaluate and Treat Home Health Nursing Order: Medical education Signs/symptoms of disease process CHF education Medication education-adverse effect Nursing assessment with vital signs I have seen patient Hermelinda Block on 06/21/17. My clinical findings support the need for the requested home health care services because: Ltd mobility - disease progression Patient has SOB I certify that my clinical findings support that this patient is homebound because: Post-op weakness Roshni Velázquez MD Jun 21, 2017 08:34
[2017-06-21 08:41] LABS: BICARBONATE 30.6 MEQ/L (21.0-32.0)
[2017-06-21 08:43] LABS: POTASSIUM 4.1 MEQ/L (3.5-5.1)
[2017-06-21] MEDS: POLYETHYLENE GLYCOL 17 GM PKG PO SCH (09:00)
--- NOTE | 2017-06-21 09:47 | HHI.PR ---
Subjective Remarks Feels better, breathing improving however cardiology wants to keep her one more day. Family at bedside also patient not comfortable to go home today. No cough. LE edema improved denies any chest pain or sob. Wants to go home and not to SNF. Also PT recommends home with home health. Objective Vitals Vital Signs Date Time Temp Pulse Resp B/P (MAP) Pulse Ox O2 Delivery O2 Flow Rate FiO2 06/21/17 07:36 97.3 68 19 135/61 (85) 96 06/21/17 06:41 71 06/21/17 04:05 97.9 74 16 119/52 (74) 95 06/21/17 04:00 74 06/21/17 00:06 98.2 80 16 121/62 (81) 96 06/20/17 23:00 75 06/20/17 20:10 97.1 78 16 96/47 (63) 96 06/20/17 20:00 77 06/20/17 16:00 96.5 72 16 95/47 (63) 96 06/20/17 13:00 98 06/20/17 12:00 97.0 81 16 101/51 (68) 98 I/O 06/20/17 06/20/17 06/20/17 06/21/17 06/21/17 06/21/17 06:59 14:59 22:59 06:59 14:59 22:59 Intake Total 250 ml 480 ml 120 ml Output Total 1450 ml 250 ml 1200 ml Balance -1450 ml 250 ml 230 ml -1080 ml Intake Oral 250 ml 480 ml 120 ml Output Urine Total 1450 ml 250 ml 1200 ml # Voids 4 # Bowel Movements 1 0 0 Result Diagram: 06/18/17 1530 06/21/17 0700 Imaging Last Impressions Chest X-Ray 06/20/17 0000 Signed Impressions: Service Date/Time: Tuesday, June 20, 2017 08:02 - CONCLUSION: Mild pulmonary vascular congestion remains. Jamey Peters MD Objective Remarks GENERAL: Elderly and frail female in no apparent distress. CARDIOVASCULAR: Normal rate and regular rhythm without murmurs, gallops, or rubs. RESPIRATORY: Good respiratory efforts. Bibasilar crackles GASTROINTESTINAL: Abdomen soft, non-tender, non-distended. Normal active bowel sounds MUSCULOSKELETAL: Extremities with 1+ bilateral lower extremity edema NEURO: Alert & Oriented x4 to person, place, time, situation. Moves all ext x4 PSYCH: Appropriate mood and affect. Procedures None A/P Problem List: (1) Acute on chronic systolic heart failure ICD Code: I50.23 - Acute on chronic systolic (congestive) heart failure (2) Hyponatremia ICD Code: E87.1 - Hyponatremia Status: Acute (3) Back pain ICD Code: M54.9 - Dorsalgia, unspecified Status: Acute (4) Lupus (systemic lupus erythematosus) ICD Code: M32.9 - Lupus (systemic lupus erythematosus) Status: Acute (5) Hypertension ICD Code: I10 - Hypertension Status: Acute (6) Generalized weakness ICD Code: R53.1 - Generalized weakness Status: Acute Assessment and Plan 87-year-old female being admitted for acute on chronic systolic CHF exacerbation , hyponatremia, and fluid overload. 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 Increasing edema, weight gain and worsening shortness of breath. BNP 1800 on admission. Chest x-ray consistent with CHF. Responding to diuretics. - IV Lasix 40 mg twice a day. - Strict I/O - Continue losartan. - Appreciate ironing worker, Dr. Horan assistance. Continue diuresis. - Continue IV diuretics for one more day. Can probably transition to PO in AM and DC to rehab. History of atrial fibrillation/pacemaker placement. - Continue Eliquis. On amiodarone. - Cardiology following Hyponatremia: Likely hypervolemic hyponatremia secondary to CHF - Fluid restriction as above. - Improving. Continue to trend. Acute on chronic upper back pain: Patient reports more pain in the upper thoracic region. Likely related to osteoarthritis and degenerative joint disease. - Pain controlled with low-dose [place]. - Continue PT. Outpatient F/U Lupus: Continue hydroxychloroquine. GI prophylaxis: Stool softener PRN constipation. DVT PPx: Eliquis DC plan : DC tomorrow home with home health, per cardiology. To follow up as OP with PCP and consultants Roshni Velázquez MD Jun 21, 2017 09:47
[2017-06-21] MEDS: FUROSEMIDE 40 MG TAB PO SCH ×2 (10:11→17:21)
[2017-06-21] MEDS: HYDROXYCHLOROQUINE SULFATE 200 MG TAB PO SCH (10:11)
[2017-06-21] MEDS: POTASSIUM CHLORIDE 20 MEQ CONTROLLED RELEASE TAB PO SCH ×2 (10:11→20:40)
[2017-06-21] MEDS: PANTOPRAZOLE SOD 40 MG DELAYED RELEASE TAB PO SCH (10:11)
[2017-06-21] MEDS: AMIODARONE 200 MG TAB PO SCH (10:11)
[2017-06-21] MEDS: LOSARTAN 25 MG TAB PO SCH (10:11)
[2017-06-21] MEDS: DOCUSATE SODIUM 50 MG/SENNA 8.6 MG TAB PO SCH ×2 (10:12→20:40)
[2017-06-21] MEDS: SODIUM CHLORIDE 0.9% FLUSH 10 ML FLUSH IV FLUSH SCH ×2 (10:12→20:40)
[2017-06-21] MEDS: APIXABAN 2.5 MG TABLET PO SCH ×2 (10:12→20:40)
[2017-06-21] MEDS ORDERED: COMMODE 3-IN-11 MIS (16:46)
[2017-06-22] VITALS: BP 100/51; PULSE 70; RESP 18; TEMP 97.7; O2SAT 95
[2017-06-22 00:05] VITALS: PULSE 74
[2017-06-22 04:00] VITALS: BP 98/53; PULSE 72; RESP 18; TEMP 97.9; O2SAT 96
[2017-06-22 07:40] VITALS: BP 136/66; PULSE 80; RESP 19; TEMP 96.3; O2SAT 95
--- NOTE | 2017-06-22 08:07 | PD.CARD.PN ---
Subjective Subjective Remarks Breathing improved.Ambulating well. Still a little weak but anxious to go home. Objective Medications Current Medications Medications (Trade) Dose Ordered Sig/Harley Route Start Time Stop Time Status Last Admin (Cordarone) 200 mg DAILY PO 06/19/17 09:00 06/21/17 10:11 (Eliquis) 2.5 mg BID PO 06/18/17 21:00 06/21/17 20:40 (Plaquenil) 200 mg DAILY PO 06/19/17 09:00 06/21/17 10:11 (Cozaar) 25 mg DAILY PO 06/19/17 09:00 06/21/17 10:11 (NS Flush) 2 ml BID IV FLUSH 06/18/17 21:00 06/21/17 20:40 (NS Flush) 2 ml UNSCH PRN IV FLUSH 06/18/17 17:45 (KCl) 20 meq BID PO 06/18/17 21:00 06/21/17 20:40 (Maye-Colace) 1 tab BID PO 06/18/17 21:00 06/21/17 20:40 (Milk Of Magnesia Liq) 30 ml Q12H PRN PO 06/18/17 18:45 (Senokot) 17.2 mg Q12H PRN PO 06/18/17 18:45 (Dulcolax Supp) 10 mg DAILY PRN RECTAL 06/18/17 18:45 (Lactulose Liq) 30 ml DAILY PRN PO 06/18/17 18:45 (Tylenol) 650 mg Q4H PRN PO 06/18/17 19:45 06/18/17 20:52 ([place] 5-325 Mg) 1 tab Q6H PRN PO 06/19/17 11:15 06/20/17 09:46 (Protonix) 40 mg DAILY PO 06/19/17 13:45 06/21/17 10:11 (Miralax) 17 gm DAILY PO 06/20/17 09:00 06/20/17 09:21 (Lasix) 40 mg BID@,18 PO 06/21/17 09:00 06/21/17 17:21 Vital Signs / I&O Vital Signs Date Time Temp Pulse Resp B/P (MAP) Pulse Ox O2 Delivery O2 Flow Rate FiO2 06/22/17 07:40 96.3 80 19 136/66 (89) 95 06/22/17 04:00 72 06/22/17 04:00 97.9 72 18 98/53 (68) 96 06/22/17 00:05 74 06/22/17 00:00 97.7 70 18 100/51 (67) 95 06/21/17 20:00 97.7 76 20 116/49 (71) 97 06/21/17 20:00 78 06/21/17 18:10 96 21 06/21/17 18:08 85 06/21/17 16:47 69 06/21/17 16:00 97.1 69 19 100/43 (62) 96 06/21/17 15:09 69 06/21/17 12:19 69 06/21/17 12:00 96 06/21/17 12:00 96.4 69 18 112/54 (73) 97 06/21/17 09:46 74 I/O 06/21/17 06/21/17 06/21/17 06/22/17 06/22/17 06/22/17 07:00 15:00 23:00 07:00 15:00 23:00 Intake Total 120 ml 650 ml 300 ml Output Total 1200 ml 500 ml Balance -1080 ml 650 ml -200 ml Intake Oral 120 ml 650 ml 300 ml Output Urine Total 1200 ml 500 ml # Voids 4 # Bowel Movements 0 0 1 Physical Exam Lungs clear RRR no murmur Assessment and Plan Assessment and Plan Good diuresis. Clinically improved. Ok to D/C home. F/U office 1 week Hector Horan MD Jun 22, 2017 08:07
--- NOTE | 2017-06-22 08:19 | HHI.DS ---
Discharge Summary Admission Date Jun 18, 2017 at 17:33 Discharge Date: Jun 22, 2017 Admitting Diagnosis volume overload, hyponatremia (1) Acute on chronic systolic heart failure ICD Code: I50.23 - Acute on chronic systolic (congestive) heart failure (2) Hyponatremia ICD Code: E87.1 - Hyponatremia Status: Acute (3) Back pain ICD Code: M54.9 - Dorsalgia, unspecified Status: Acute (4) Lupus (systemic lupus erythematosus) ICD Code: M32.9 - Lupus (systemic lupus erythematosus) Status: Acute (5) Hypertension ICD Code: I10 - Hypertension Status: Acute (6) Generalized weakness ICD Code: R53.1 - Generalized weakness Status: Acute Procedures None Brief History - From Admission 87-year-old female with a medical history significant for coronary artery disease status post stent placement, atrial fibrillation, pacemaker placement, CHF, osteoarthritis, hypertension, and lupus. The patient presented to the hospital with increasing bilateral lower extremity swelling, weight gain, shortness of breath, extreme weakness to the point that she is unable to walk without getting severely short of breath. She is using multiple pillows at night. For the past few weeks, she has been having issues with worsening upper back pain. She has seen her primary care doctor who ordered an x-ray but she does not know the results. Her primary care physician increased her Lasix to 20 mg twice a day but she did not respond to it and continued to have scant urination, increasing swelling and shortness of breath. Workup in the emergency room revealed BNP of 1800. Chest X-ray consistent with heart failure. Patient also found to be hyponatremic. The patient's son was present for the evaluation. CBC/BMP: 06/18/17 1530 06/21/17 0700 Significant Findings Laboratory Tests Test 06/20/17 11:15 06/21/17 07:00 Blood Urea Nitrogen 19 MG/DL (7-18) 21 MG/DL (7-18) Creatinine 1.53 MG/DL (0.50-1.00) 1.52 MG/DL (0.50-1.00) Random Glucose 122 MG/DL (74-106) Sodium Level 132 MEQ/L (136-145) 132 MEQ/L (136-145) Chloride Level 94 MEQ/L (98-107) 95 MEQ/L (98-107) Estimat Glomerular Filtration Rate 32 ML/MIN (>89) 32 ML/MIN (>89) Imaging Last Impressions Chest X-Ray 06/20/17 0000 Signed Impressions: Service Date/Time: Tuesday, June 20, 2017 08:02 - CONCLUSION: Mild pulmonary vascular congestion remains. Jamey Peters MD PE at Discharge GENERAL: Elderly and frail female in no apparent distress. CARDIOVASCULAR: Normal rate and regular rhythm without murmurs, gallops, or rubs. RESPIRATORY: Good respiratory efforts. Bibasilar crackles GASTROINTESTINAL: Abdomen soft, non-tender, non-distended. Normal active bowel sounds MUSCULOSKELETAL: Extremities with no edema NEURO: Alert & Oriented x4 to person, place, time, situation. Moves all ext x4 PSYCH: Appropriate mood and affect. Pt update on day of discharge In the chair eating breakfast. She feels much better today and feels comfortable to go home. Cardiology Dr. Horan. Patient was discharged to follow-up with them to his office in one week. Also Bedside Discharge Plan Discussed with the Patient and Family at Bedside. Patient Denies Having Any Chest Pain or Shortness of Breath. No Lower Extremity Edema. No Lightheadedness or Palpitations. Hospital Course 87-year-old female being admitted for acute on chronic systolic CHF exacerbation , hyponatremia, and fluid overload patient with acute on chronic combined systolic and diastolic CHF exacerbation echo on this admission shows ejection fraction of 35-40% patient presented with decreasing edema will obtain a worsening shortness of breath. The was noted 1800 on admission chest x-ray consistent with CHF. She was started on Lasix IV 40 mg twice a day, strict I's and O's. Cardiology consulted Dr. Horan. Patient also with history of A. fib with pacemaker placement on amiodarone, Eliquis. Patient improved with diuresis. She was discharged home with home health in stable condition to follow-up with PCP and cardiology as outpatient. Pt Condition on Discharge: Stable Discharge Disposition: Disch w/ Home Health Serv Discharge Time: > 30 minutes Discharge Instructions DIET: Follow Instructions for: Heart Healthy Diet Activities you can perform: Regular-No Restrictions Follow up Referrals: Cardiology - 1 Week PCP Follow-up - 2-3 Days SNF/[facility] with [facility] New Medications: Commode 3-in-1 (Commode 3-in-1) 1 Mis Mis EA .ROUTE DIRECTED, #1 0 Refills Continued Medications: Amiodarone (Amiodarone) 200 Mg Tab 200 MG PO DAILY for Regulate Heart Beat, #30 TAB 0 Refills Apixaban (Eliquis) 2.5 Mg Tab 2.5 MG PO BID for Blood Clot Prevention, TAB 0 Refills Febuxostat (Uloric) 40 Mg Tab TAB PO EVERY OTHER DAY Furosemide (Furosemide) 40 Mg Tab 20 MG PO BID, #60 TAB 0 Refills Hydroxychloroquine (Plaquenil) 200 Mg Tab 200 MG PO DAILY, #30 TAB 0 Refills Take with food Losartan (Cozaar) 25 Mg Tab 25 MG PO DAILY for Blood Pressure Management, #30 TAB 0 Refills Roshni Velázquez MD Jun 22, 2017 08:19
[2017-06-22] MEDS: POLYETHYLENE GLYCOL 17 GM PKG PO SCH (09:00)
[2017-06-22] MEDS: SODIUM CHLORIDE 0.9% FLUSH 10 ML FLUSH IV FLUSH SCH (09:00)
[2017-06-22] MEDS: HYDROXYCHLOROQUINE SULFATE 200 MG TAB PO SCH (09:29)
[2017-06-22] MEDS: PANTOPRAZOLE SOD 40 MG DELAYED RELEASE TAB PO SCH (09:30)
[2017-06-22] MEDS: FUROSEMIDE 40 MG TAB PO SCH (09:30)
[2017-06-22] MEDS: DOCUSATE SODIUM 50 MG/SENNA 8.6 MG TAB PO SCH (09:30)
[2017-06-22] MEDS: AMIODARONE 200 MG TAB PO SCH (09:30)
[2017-06-22] MEDS: POTASSIUM CHLORIDE 20 MEQ CONTROLLED RELEASE TAB PO SCH (09:30)
[2017-06-22] MEDS: LOSARTAN 25 MG TAB PO SCH (09:30)
[2017-06-22] MEDS: APIXABAN 2.5 MG TABLET PO SCH (09:30)
[2017-06-22 10:09] VITALS: PULSE 75
[2017-06-22 11:47] VITALS: BP 107/54; PULSE 82; RESP 19; TEMP 96.5; O2SAT 96
--- NOTE | 2017-06-28 18:29 | PQ ---
Physician Query Response Document PATIENT: EMELIA SUTTON : 1930 ADMIT DATE: 06/18/2017 5:33 PM DISCH DATE: 06/22/2017 12:04 PM RESPONDING PROVIDER #: [email or web address] QUERY TEXT: Acuity Specificity _RENAL INSUFFICIENCY is documented in the Medical Record. Please specify the acuity of this condition with terms such as: -- Acute -- Chronic -- Acute and chronic -- Acute on chronic -- Other (please specify in the medical record) Your prompt response is appreciated, please do not hesitate to contact the CDI/Coding Hotline with an y questions, comments and/or concerns you may have at [phone]. [phone]. The patient's Clinical Indicators include: ED RECORD, CARDIOLOGY CONSULT 06/19- RENAL INSUFFICIENCY BUN: 06/18-, 06/19-24, 06/20-, 06/21-21 CREATININE: 06/18-1.58, 06/19-1.48, 06/20-1.53, 06/21-1.52 GFR: (SAME DATES BUN/CREAT): 31, 33, 32, 32 Query created by: Danielle Vu on 06/28/2017 10:42 AM RESPONSE TEXT: Acute renal failure Electronically signed by: Roshni Velázquez MD 06/28/2017 6:26 PM
== END 2017-06-22 12:04 | disposition home health service (06) | DRG 292 ==
LOC: NEPC 14:48 → NEDA 17:33 → N06B 21:10
PROVIDERS: ADMIT Hospitalist; ATTEND Hospitalist
DX: I11.0 Hypertensive heart disease with heart failure (principal); E87.1 Hypo-osmolality and hyponatremia; N17.9 Acute kidney failure, unspecified; M32.9 Systemic lupus erythematosus, unspecified; I42.9 Cardiomyopathy, unspecified; I50.43 Acute on chronic combined systolic (congestive) and diastolic (congestive) heart failure; I48.2 Chronic atrial fibrillation; I25.10 Atherosclerotic heart disease of native coronary artery without angina pectoris; D64.9 Anemia, unspecified; M47.814 Spondylosis without myelopathy or radiculopathy, thoracic region; M19.90 Unspecified osteoarthritis, unspecified site; Z66 Do not resuscitate; Z79.01 Long term (current) use of anticoagulants; Z86.73 Personal history of transient ischemic attack (TIA), and cerebral infarction without residual deficits; Z95.0 Presence of cardiac pacemaker; Z95.5 Presence of coronary angioplasty implant and graft
CPT/HCPCS: 71010; 80048; 80053; 83880; 84484; 85025; 93005; 93306; 96374; J1940

== ENCOUNTER 2017-10-23 07:16 | Emergency (ER) | payer MEDICARE, OTHER ==
[~2017-10-23] VITALS: Ht 149.9 cm; Wt 50.0 kg
[~2017-10-23 07:16] MED LIST changes: +AMIO200T PO; +APIX2.5T PO; -ASPI81TA45 PO; -CENTTAB16 PO; +COMMODE 3-IN-11 MIS; +COZA25TA PO; -COZA50TA PO; -DOCU1CAP39 PO; -DOXY100 PO; -FERR324T PO; -FURO20 PO; +FURO40TA PO; -HYDR200T42 PO; -LEVS0.124 SL; -LORTA5 PO; +PLAQ200T PO; -PRED10 PO; -PROT40TA PO; -ROSU5 PO; -SYNT88TA PO; -TOPR50TA PO; +ULOR40TA PO
[2017-10-23 07:23] VITALS: BP 138/79; PULSE 79; RESP 16; TEMP 96.9; O2SAT 95
[2017-10-23] MEDS ORDERED: LEVO.075 PO (07:39)
[2017-10-23] MEDS ORDERED: PANT40TA3 PO (07:39)
[2017-10-23] MEDS ORDERED: ASPI-516 PO (07:39)
[2017-10-23] MEDS ORDERED: LIDOCAINE 1%/EPINEPHrine 1:100,000 SOLN 20 ML VIAL INFIL ONE (07:45)
--- NOTE | 2017-10-23 07:46 | PD ---
HPI Chief Complaint: Fall Time Seen by Provider: 07:41 Travel History International Travel<30 days: No Contact w/Intl Traveler<30days: No Traveled to known affect area: No History of Present Illness HPI 87 yo F complains of fall last night. Mechanism was loss of balance and tripping over the side of her walker/chair. Patient reports bleeding due to a laceration about the ankle. In the ER she reports feeling anxious which she states is normal for her. She also states she is very weak. She has had decreased appetite. She reports head trauma on the left side however reports that carpets. She is takes Eliquis for A. fib. She also reports shortness of breath and dyspnea on exertion for the past few days. She has an appointment with Dr. Horan her photographer helper. She reports compliance with Lasix for known history of CHF. PFSH Past Medical History Hx Anticoagulant Therapy: Yes Anemia: Yes Arthritis: Yes (OSTEOARTHRITIS) Anxiety: No Depression: No Heart Rhythm Problems: Yes (AFIB) Cancer: No Cardiovascular Problems: Yes High Cholesterol: Yes Chemotherapy: No Congestive Heart Failure: Yes Cerebrovascular Accident: Yes Diabetes: No Diminished Hearing: No GERD: Yes (SCHOTZKI SYNDROME) Genitourinary: Yes (RETAINS URINE.SEES UROLOGIST EVERY 2 MONTHS) Hypertension: Yes Immune Disorder: Yes (Lupus) Implanted Vascular Access Dvce: No Musculoskeletal: Yes Neurologic: No Psychiatric: No Reproductive: No Respiratory: No Immunizations Current: Yes Radiation Therapy: No Thyroid Disease: Yes ?: Not Menopausal: Yes : 2 Para: 2 Dilation and Curettage (D&C): Yes Past Surgical History Appendectomy: Yes Cardiac Surgery: Yes (PACEMAKER- JAN 2014) Coronary Stent: Yes (X 1) Gynecologic Surgery: Yes (R ovary removed and tube removed) Pacemaker: No Other Surgery: Yes (URETHRAL DILITATION) Social History Alcohol Use: No Tobacco Use: No Substance Use: No Allergies-Medications (Allergen,Severity, Reaction): Coded Allergies: nitrofurantoin (Verified Allergy, Severe, SWELLING, 10/23/17) nortriptyline (Verified Allergy, Severe, RASH, 10/23/17) Reported Meds & Prescriptions Reported Meds & Active Scripts Active Reported Aspirin 81 Mg Chew 81 Mg PO DAILY Synthroid (Levothyroxine Sodium) 75 Mcg Tab 75 Mcg PO DAILY Pantoprazole (Pantoprazole Sodium) 40 Mg Tab 40 Mg PO DAILY Uloric (Febuxostat) 40 Mg Tab Tab PO EVERY OTHER DAY Furosemide 40 Mg Tab 20 Mg PO BID Plaquenil (Hydroxychloroquine Sulfate) 200 Mg Tab 200 Mg PO DAILY Take with food Cozaar (Losartan Potassium) 25 Mg Tab 25 Mg PO DAILY Amiodarone (Amiodarone HCl) 200 Mg Tab 100 Mg PO DAILY Eliquis (Apixaban) 2.5 Mg Tab 2.5 Mg PO BID Review of Systems Except as stated in HPI: all other systems reviewed are Neg General / Constitutional: No: Fever Physical Exam Narrative GENERAL: 87-year-old female pleasant well-nourished well-developed Vital Signs Date Time Temp Pulse Resp B/P (MAP) Pulse Ox O2 Delivery O2 Flow Rate FiO2 10/23/17 07:23 96.9 79 16 138/79 (98) 95 SKIN: Warm and dry. There is a triangular-shaped laceration about the lateral aspect of the left leg just above the lateral malleolus. HEAD: Atraumatic. Normocephalic. EYES: Pupils equal and round. No scleral icterus. No injection or drainage. ENT: No nasal bleeding or discharge. Mucous membranes pink and moist. NECK: Trachea midline. No JVD. CARDIOVASCULAR: Regular rate and rhythm. RESPIRATORY: No accessory muscle use. Clear to auscultation. Breath sounds equal bilaterally. GASTROINTESTINAL: Abdomen soft, non-tender, nondistended. Hepatic and splenic margins not palpable. MUSCULOSKELETAL: Extremities without clubbing, cyanosis, or edema. No obvious deformities. There is 2+ pitting edema of the bilateral lower extremities. NEUROLOGICAL: Awake and alert. No obvious cranial nerve deficits. Motor grossly within normal limits. Five out of 5 muscle strength in the arms and legs. Normal speech. PSYCHIATRIC: Appropriate mood and affect; insight and judgment normal. Data Data Last Documented VS Vital Signs Date Time Temp Pulse Resp B/P (MAP) Pulse Ox O2 Delivery O2 Flow Rate FiO2 10/23/17 10:04 77 16 141/66 (91) 97 Nasal Cannula 2.00 10/23/17 07:23 96.9 Orders Orders Complete Blood Count With Diff (10/23/17 07:41) Comprehensive Metabolic Panel (10/23/17 07:41) B-Type Natriuretic Peptide (10/23/17 07:41) Ckmb (Isoenzyme) Profile (10/23/17 07:41) Troponin I (10/23/17 07:41) Urinalysis - C+S If Indicated (10/23/17 07:41) Iv Access Insert/Monitor (10/23/17 07:41) Electrocardiogram (10/23/17 07:41) Ecg Monitoring (10/23/17 07:41) Oximetry (10/23/17 07:41) Oxygen Administration (10/23/17 07:41) Chest, Single Ap (10/23/17 07:41) Sodium Chloride 0.9% Flush (Ns Flush) (10/23/17 07:45) Lidocai-Epi 1%-1:100,000 Inj (Xylocaine- (10/23/17 07:45) Ct Brain W/O Iv Contrast(Rout) (10/23/17 07:41) Lidocai-Epi 1%-1:100,000 Inj (Xylocaine- (10/23/17 07:54) CKMB (10/23/17 07:53) CKMB% (10/23/17 07:53) Furosemide Inj (Lasix Inj) (10/23/17 10:00) Admit Order (Ed Use Only) (10/23/17 ) Supervisor Dyer / Telemetry MARINA.Q8H (10/23/17 10:19) Vital Signs (Adult) Q4H (10/23/17 10:19) Activity Bed Rest (10/23/17 10:19) Place In Observation (10/23/17 ) Code Status (10/23/17 10:18) Vital Signs (Adult) Q4H (10/23/17 10:18) Activity Oob Ad Beata (10/23/17 10:18) Supervisor Dyer / Telemetry .CONTINUOUS (10/23/17 10:18) Intake + Output MARINA.QSHIFT (10/23/17 10:18) Notify Dr: Other (10/23/17 10:18) Diet Heart Healthy (10/23/17 Lunch) Sodium Chloride 0.9% Flush (Ns Flush) (10/23/17 10:30) Sodium Chloride 0.9% Flush (Ns Flush) (10/23/17 21:00) Acetaminophen (Tylenol) (10/23/17 10:30) Ondansetron Inj (Zofran Inj) (10/23/17 10:30) Basic Metabolic Panel (Bmp) (10/24/17 06:00) Complete Blood Count With Diff (10/24/17 06:00) Creatine Kinase (Cpk) (10/23/17 10:18) Creatine Kinase (Cpk) (10/23/17 16:18) Troponin I (10/23/17 10:18) Troponin I (10/23/17 16:18) Resp Oxygen Alex C Titrat 1-4 L (10/23/17 ) Pt Request For Service (10/23/17 10:18) Case Management Consult (10/23/17 10:18) Naloxone Inj (Narcan Inj) (10/23/17 10:30) Sennosides (Senokot) (10/23/17 10:30) Bisacodyl Supp (Dulcolax Supp) (10/23/17 10:30) Lactulose Liq (Lactulose Liq) (10/23/17 10:30) Labs Laboratory Tests Test 10/23/17 07:53 White Blood Count 3.7 TH/MM3 Red Blood Count 4.00 MIL/MM3 Hemoglobin 11.1 GM/DL Hematocrit 35.2 % Mean Corpuscular Volume 88.1 FL Mean Corpuscular Hemoglobin 27.7 PG Mean Corpuscular Hemoglobin Concent 31.5 % Red Cell Distribution Width 17.3 % Platelet Count 223 TH/MM3 Mean Platelet Volume 9.0 FL Neutrophils (%) (Auto) 72.7 % Lymphocytes (%) (Auto) 16.6 % Monocytes (%) (Auto) 9.3 % Eosinophils (%) (Auto) 0.0 % Basophils (%) (Auto) 1.4 % Neutrophils # (Auto) 2.7 TH/MM3 Lymphocytes # (Auto) 0.6 TH/MM3 Monocytes # (Auto) 0.3 TH/MM3 Eosinophils # (Auto) 0.0 TH/MM3 Basophils # (Auto) 0.1 TH/MM3 CBC Comment DIFF FINAL Differential Comment Blood Urea Nitrogen 23 MG/DL Creatinine 1.64 MG/DL Random Glucose 98 MG/DL Total Protein 7.1 GM/DL Albumin 3.5 GM/DL Calcium Level 8.8 MG/DL Alkaline Phosphatase 87 U/L Aspartate Amino Transf (AST/SGOT) 59 U/L Alanine Aminotransferase (ALT/SGPT) 41 U/L Total Bilirubin 0.8 MG/DL Sodium Level 141 MEQ/L Potassium Level 4.3 MEQ/L Chloride Level 99 MEQ/L Carbon Dioxide Level 31.7 MEQ/L Anion Gap 10 MEQ/L Estimat Glomerular Filtration Rate 30 ML/MIN Total Creatine Kinase 248 U/L Creatine Kinase MB 11.3 NG/ML Creatine Kinase MB % 4.6 % Troponin I 0.14 NG/ML B-Type Natriuretic Peptide 1520 PG/ML MDM Medical Decision Making Medical Screen Exam Complete: Yes Emergency Medical Condition: Yes Medical Record Reviewed: Yes Differential Diagnosis CHF, intracranial hemorrhage, laceration Narrative Course CBC & BMP Diagram 10/23/17 07:53 Total Protein 7.1, Albumin 3.5, Calcium Level 8.8, Alkaline Phosphatase 87, Aspartate Amino Transf (AST/SGOT) 59 H, Alanine Aminotransferase (ALT/SGPT) 41, Total Bilirubin 0.8 CKMB 11.3 Tn 0.14 BNP 1520 EKG: electronic ventricular pacemaker, rate 68 CXR: no dense consolidation Case was discussed with Dr. Horan of cardiology. Patient has an appointment today at 145PM with Dr Horan. The son and the patient were fairly strongly opposed to admission. We discussed the results of the workup including elevated BNP, elevated troponin and cardiomegaly with obscuration of the right hemidiaphragm. Patient understands she can return any time. Procedures Procedure Narrative LACERATION LOCATION: Left lower leg LENGTH: 4 cm NUMBER OF STITCHES/LINDA: 4 REPAIR: The area of the laceration was prepped with Betadine and sterilely draped. The laceration was infiltrated with Lidocaine with epinephrine. The wound was copiously irrigated and explored without evidence of foreign body, tendon injury or neurovascular injury. The wound was closed using linda. This was a single layer repair. A sterile dressing was applied. The patient was advised to keep the dressing clean and dry. Patient tolerated the procedure well. Diagnosis Primary Impression: Acute on chronic diastolic CHF (congestive heart failure) Additional Impressions: Fall Qualified Codes: W19.XXXA - Unspecified fall, initial encounter Laceration of leg Qualified Codes: S81.812A - Laceration without foreign body, left lower leg, initial encounter Referrals: RETURN IN 8 DAYS FOR SUTURE REMOVAL Hector Horan MD 1 day Med/Other Pt SpecificInfo: No Change to Meds Disposition: 01 DISCHARGE HOME Condition: Stable Fermin Gomez MD Oct 23, 2017 07:46
[2017-10-23 07:47] VITALS: RESP 20; O2SAT 97
[2017-10-23] MEDS ORDERED: LIDOCAINE 1%/EPINEPHrine 1:100,000 SOLN 30 ML VIAL ONE (07:54)
[2017-10-23] MEDS: SODIUM CHLORIDE 0.9% FLUSH 10 ML FLUSH IVF PRN ×2 (07:56→10:05)
[2017-10-23 08:25] LABS: AUTOMATED NEUTROPHIL # 2.7 TH/MM3 (1.8-7.7); BASOPHIL # 0.1 TH/MM3 (0-0.2); BASOPHIL % 1.4 % (0.0-2.0); HEMATOCRIT 35.2 % (35.0-46.0); HEMOGLOBIN 11.1 GM/DL (11.6-15.3); LYMPH % 16.6 % (9.0-44.0); LYMPHOCYTE # 0.6 TH/MM3 (1.0-4.8); MEAN CELL VOLUME 88.1 FL (80.0-100.0); MEAN CORPUSCULAR HEMOGLOBIN 27.7 PG (27.0-34.0); MEAN CORPUSCULAR HGB CONC 31.5 % (32.0-36.0); MONO % 9.3 % (0.0-8.0); MONOCYTE # 0.3 TH/MM3 (0-0.9); NEUT % 72.7 % (16.0-70.0); PLATELET COUNT 223 TH/MM3 (150-450); RED CELL DISTRIBUTION WIDTH 17.3 % (11.6-17.2); WHITE BLOOD COUNT 3.7 TH/MM3 (4.0-11.0)
[2017-10-23 08:41] LABS: ALBUMIN 3.5 GM/DL (3.4-5.0); ALT (GPT) 41 U/L (10-53); AST (GOT) 59 U/L (15-37); BICARBONATE 31.7 MEQ/L (21.0-32.0); BLOOD UREA NITROGEN 23 MG/DL (7-18); CALCIUM 8.8 MG/DL (8.5-10.1); CHLORIDE 99 MEQ/L (98-107); CREATININE 1.64 MG/DL (0.50-1.00); GLOMERULAR FILTRATION RATE 30 ML/MIN (>89); GLUCOSE,RANDOM 98 MG/DL (74-106); SODIUM (NA) 141 MEQ/L (136-145)
--- NOTE | 2017-10-23 08:44 | RADRPT ---
EXAM DATE/TIME: 10/23/2017 08:13 [facility] COMPARISON: No previous studies available for comparison. INDICATIONS : Patient fell, struck left side of head RADIATION DOSE: 35.03 CTDIvol (mGy) MEDICAL HISTORY : Cardiovascular disease. Hypertension. SURGICAL HISTORY : Appendectomy. Pacemaker. ENCOUNTER: Initial ACUITY: 1 day PAIN SCALE: 2/10 LOCATION: Left cranial TECHNIQUE: Multiple contiguous axial images were obtained of the head. Using automated exposure control and adj ustment of the mA and/or kV according to patient size, radiation dose was kept as low as reasonably a chievable to obtain optimal diagnostic quality images. DICOM format image data is available electro nically for review and comparison. FINDINGS: CEREBRUM: Stable mild cerebral atrophy is noted at Moderate periventricular and subcortical white matter small vessel ischemic changes are noted bilaterally. Early No evidence of midline shift, mass lesion, hemor rhage or acute infarction. No extra-axial fluid collections are seen. POSTERIOR FOSSA: The brainstem is intact. 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 The 4th ventricle is midline. The cerebellopontine angle is unremarkable. EXTRACRANIAL: The visualized portion of the orbits is intact. SKULL: The calvaria is intact. No evidence of skull fracture. CONCLUSION: 1. Moderate periventricular and subcortical white matter small vessel ischemic changes bilaterally. 2. Stable mild cerebral atrophy. 3. Old bilateral cerebellar infarcts. 4. No acute infarct, acute hemorrhage midline shift or extra-axial fluid collections. Enmanuel Lara MD on October 23, 2017 at 8:39 Board Certified Radiologist. This report was verified electronically.
[2017-10-23 08:45] LABS: ALKALINE PHOSPHATASE 87 U/L (45-117); TOTAL BILIRUBIN ADULT 0.8 MG/DL (0.2-1.0); TOTAL PROTEIN 7.1 GM/DL (6.4-8.2); TROPONIN I 0.14 NG/ML (0.02-0.05)
--- NOTE | 2017-10-23 09:35 | RADRPT ---
EXAM DATE/TIME: 10/23/2017 09:10 [facility] COMPARISON: CHEST SINGLE AP, June 20, 2017, 8:02. INDICATIONS : Short of breath. MEDICAL HISTORY : Cardiovascular disease. Hypertension SURGICAL HISTORY : Appendectomy. Pacemaker. ENCOUNTER: Initial ACUITY: 1 day PAIN SCORE: 2/10 LOCATION: Bilateral chest FINDINGS: A single AP erect view of the chest was obtained and again demonstrates a left subclavian AV sequenti al transvenous pacer in place. The study remains Midinspiratory. The heart size is mildly enlarged. T here is mild patchy opacity at the lung bases most characteristic of scarring. There are no new confl uent infiltrates or effusions. The bony thorax remains stable in appearance. CONCLUSION: No significant change. Cardiomegaly and apparent scarring. Leonides Chopra MD on October 23, 2017 at 9:32 Board Certified Radiologist. This report was verified electronically.
[2017-10-23] MEDS ORDERED: FUROSEMIDE 40 MG/4 ML VIAL IVP ONE (10:00)
[2017-10-23 10:04] VITALS: BP 141/66; PULSE 77; RESP 16; O2SAT 97
[2017-10-23] MEDS ORDERED: BISACODYL 10 MG SUPP RECTAL PRN (10:30)
[2017-10-23] MEDS ORDERED: NALOXONE HCL 0.4 MG/ML AMP IV PUSH PRN (10:30)
[2017-10-23] MEDS ORDERED: ACETAMINOPHEN 325 MG TAB PO PRN (10:30)
[2017-10-23] MEDS ORDERED: SODIUM CHLORIDE 0.9% FLUSH 10 ML FLUSH IV FLUSH PRN (10:30)
[2017-10-23] MEDS ORDERED: SENNOSIDES 8.6 MG TAB PO PRN (10:30)
[2017-10-23] MEDS ORDERED: LACTULOSE SYRUP 20 GM/30 ML CUP PO PRN (10:30)
[2017-10-23] MEDS ORDERED: ONDANSETRON HCL 4 MG/2 ML VIAL IVP PRN (10:30)
[2017-10-23 11:07] VITALS: BP 137/62; PULSE 71; RESP 16; O2SAT 93
[2017-10-23] MEDS ORDERED: SODIUM CHLORIDE 0.9% FLUSH 10 ML FLUSH IV FLUSH SCH (21:00)
[2017-10-23] MEDS ORDERED: APIXABAN 2.5 MG TABLET PO SCH (21:00)
--- NOTE | 2017-10-23 21:01 | EKG ---
Date Performed: 10/23/2017 Time Performed: 07:57:36 PTAGE: 87 years EKG: ELECTRONIC VENTRICULAR PACEMAKER ABNORMAL RHYTHM ECG PREVIOUS TRACING : 06/18/2017 15.30 No significant change from previous tracing noted. DOCTOR: Carter Horton Interpretating Date/Time 10/23/2017 20:59:39
[2017-10-24] MEDS ORDERED: FUROSEMIDE 40 MG/4 ML VIAL IV PUSH SCH (06:00)
[2017-10-24] MEDS ORDERED: LEVOTHYROXINE SODIUM 75 MCG TAB PO SCH (09:00)
[2017-10-24] MEDS ORDERED: LOSARTAN 25 MG TAB PO SCH (09:00)
[2017-10-24] MEDS ORDERED: PANTOPRAZOLE SOD 40 MG DELAYED RELEASE TAB PO SCH (09:00)
[2017-10-24] MEDS ORDERED: AMIODARONE 200 MG TAB PO SCH (09:00)
[2017-10-24] MEDS ORDERED: HYDROXYCHLOROQUINE SULFATE 200 MG TAB PO SCH (09:00)
[2017-10-24] MEDS ORDERED: ASPIRIN 81 MG CHEW TAB PO SCH (09:00)
== END 2017-10-23 11:25 | disposition home or self-care (01) ==
LOC: NEPE 07:16 → NEDA 10:20 → UNDOADMOB 10:20
DX: I50.33 Acute on chronic diastolic (congestive) heart failure (principal); S81.812A Laceration without foreign body, left lower leg, initial encounter; R94.31 Abnormal electrocardiogram [ECG] [EKG]; I48.91 Unspecified atrial fibrillation; F41.9 Anxiety disorder, unspecified; M19.90 Unspecified osteoarthritis, unspecified site; E78.00 Pure hypercholesterolemia, unspecified; D64.9 Anemia, unspecified; I11.0 Hypertensive heart disease with heart failure; M32.9 Systemic lupus erythematosus, unspecified; E07.9 Disorder of thyroid, unspecified; W01.0XXA Fall on same level from slipping, tripping and stumbling without subsequent striking against object, initial encounter; Z79.01 Long term (current) use of anticoagulants; Z79.82 Long term (current) use of aspirin; Z86.73 Personal history of transient ischemic attack (TIA), and cerebral infarction without residual deficits; Z95.5 Presence of coronary angioplasty implant and graft; Z95.0 Presence of cardiac pacemaker
CPT/HCPCS: 12002; 70450; 71045; 80053; 82550; 82552; 83880; 84484; 85025; 93005; 96374; 99285; J1940

== ENCOUNTER 2017-11-03 14:14 | Inpatient (IN) | payer MEDICARE, OTHER ==
[~2017-11-03] VITALS: Ht 149.9 cm; Wt 50.3 kg
[~2017-11-03 14:14] MED LIST changes: +ASPI-516 PO; -COMMODE 3-IN-11 MIS; +LEVO.075 PO; +PANT40TA3 PO
[2017-11-03 14:18] VITALS: BP 149/65; PULSE 77; RESP 28; TEMP 97.5; O2SAT 91
[2017-11-03 14:30] VITALS: BP 141/65; PULSE 77; RESP 26; O2SAT 100; O2SAT 94
--- NOTE | 2017-11-03 15:08 | RADRPT ---
EXAM DATE/TIME: 11/03/2017 14:40 [facility] COMPARISON: CHEST SINGLE AP, June 20, 2015, 4:51. US CHEST RIGHT, November 20, 2015, 10:49. CHEST SINGLE AP, Jun, 8:02. CHEST SINGLE AP, October 23, 2017, 9:10. INDICATIONS : Chest pain. MEDICAL HISTORY : Hypertension. Cardiovascular disease. SURGICAL HISTORY : Pacemaker. ENCOUNTER: Initial ACUITY: 1 day PAIN SCORE: 5/10 LOCATION: Bilateral chest FINDINGS: Portable AP view of the chest demonstrates enlargement of the cardiac silhouette with mitral annular calcification. Left chest wall pacing device is present. There is slight blunting of the left costoph renic sulcus. Linear opacities are present at the right lung base. No pneumothorax is identified. Bon es demonstrate no acute finding. CONCLUSION: 1. Very small left pleural effusion. Stable enlargement of the cardiac silhouette. 2. Chronic linear opacities at the right base most likely represent either atelectasis or scar. Rupesh Max MD on November 03, 2017 at 15:04 Board Certified Radiologist. This report was verified electronically.
[2017-11-03 15:27] LABS: AUTOMATED NEUTROPHIL # 2.8 TH/MM3 (1.8-7.7); BASOPHIL % 0.8 % (0.0-2.0); HEMATOCRIT 35.2 % (35.0-46.0); HEMOGLOBIN 11.3 GM/DL (11.6-15.3); LYMPH % 20.2 % (9.0-44.0); LYMPHOCYTE # 0.8 TH/MM3 (1.0-4.8); MEAN CELL VOLUME 87.7 FL (80.0-100.0); MEAN CORPUSCULAR HEMOGLOBIN 28.1 PG (27.0-34.0); MEAN CORPUSCULAR HGB CONC 32.1 % (32.0-36.0); MEAN PLATELET VOLUME 9.1 FL (7.0-11.0); MONO % 11.5 % (0.0-8.0); MONOCYTE # 0.5 TH/MM3 (0-0.9); NEUT % 67.5 % (16.0-70.0); PLATELET COUNT 244 TH/MM3 (150-450); RED BLOOD COUNT 4.01 MIL/MM3 (4.00-5.30); WHITE BLOOD COUNT 4.2 TH/MM3 (4.0-11.0)
[2017-11-03 15:32] LABS: ALBUMIN 3.4 GM/DL (3.4-5.0); ALT (GPT) 34 U/L (10-53); AST (GOT) 57 U/L (15-37); BLOOD UREA NITROGEN 24 MG/DL (7-18); CALCIUM 8.8 MG/DL (8.5-10.1); CHLORIDE 96 MEQ/L (98-107); CREATININE 1.63 MG/DL (0.50-1.00); GLOMERULAR FILTRATION RATE 30 ML/MIN (>89); GLUCOSE,RANDOM 93 MG/DL (74-106); MAGNESIUM 2.5 MG/DL (1.5-2.5); SODIUM (NA) 139 MEQ/L (136-145)
[2017-11-03 15:33] LABS: INTERNATIONAL NORMALIZED RATIO 1.1 RATIO; PROTHROMBIN TIME - PATIENT 11.2 SEC (9.8-11.6)
[2017-11-03 15:42] LABS: ALKALINE PHOSPHATASE 95 U/L (45-117); TOTAL BILIRUBIN ADULT 0.6 MG/DL (0.2-1.0)
--- NOTE | 2017-11-03 15:52 | PD ---
HPI Chief Complaint: Respiratory Symptoms Time Seen by Provider: 14:22 Travel History International Travel<30 days: No Contact w/Intl Traveler<30days: No Traveled to known affect area: No History of Present Illness HPI 87-year-old female that presents to the ED for evaluation of shortness of breath with exertion and possible CHF. Patient has a chronic history of CHF was seen here about a week ago after she had a mechanical fall. Patient was evaluated for the mechanical fall and during that time she was found to be having CHF issues. She apparently had some pleural effusion and her BNP was highly elevated on Dr. Gomez at the time wanted to admit her for further eval as patient had a au pair appointment that same day patient and the son wanted to follow-up with the au pair before being admitted. Patient chronically takes oxygen at home. Per patient she chooses 2 L blood for the past week she has had to use it but during the day on the ninth. Per patient she has been finding that she has been gaining weight. Per patient she gained about 5 pounds in just 1 week. 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 Apparently she has to get dilated her urethra every 2 months and she is due for one soon. Per son and patient she has not been urinating enough. She has been increasing her Lasix but her urine output has been decreased. She continues to gain weight and her legs have become more swollen. She states that she gets more short of breath even with just sitting. She denies any history of COPD. She denies any chest pain. She states having some back pain secondary to the fall she had. She has been taking Tylenol with some relief. She denies any abdominal discomfort. No other medical issues. PFSH Past Medical History Hx Anticoagulant Therapy: Yes Anemia: Yes Arthritis: Yes (OSTEOARTHRITIS) Atrial Fibrillation: Yes Anxiety: No Depression: No Heart Rhythm Problems: Yes Cancer: No Cardiovascular Problems: Yes High Cholesterol: Yes Chemotherapy: No Congestive Heart Failure: Yes Cerebrovascular Accident: Yes Diabetes: No Diminished Hearing: No GERD: Yes (SCHOTZKI SYNDROME) Genitourinary: Yes (RETENTION) Hypertension: Yes Immune Disorder: Yes (Lupus) Implanted Vascular Access Dvce: No Musculoskeletal: Yes Neurologic: No Psychiatric: No Reproductive: No Respiratory: No Immunizations Current: Yes Radiation Therapy: No Thyroid Disease: Yes Tetanus Vaccination: Unknown Influenza Vaccination: Yes ?: Not Menopausal: Yes : 2 Para: 2 Dilation and Curettage (D&C): Yes Past Surgical History Appendectomy: Yes Cardiac Surgery: Yes (PACEMAKER- JAN 2014) Coronary Stent: Yes (X 1) Gynecologic Surgery: Yes (R ovary removed and tube removed) Pacemaker: Yes Other Surgery: Yes (URETHRAL DILITATION) Social History Alcohol Use: No Tobacco Use: No Substance Use: No Allergies-Medications (Allergen,Severity, Reaction): Coded Allergies: nitrofurantoin (Verified Allergy, Severe, SWELLING, 11/03/17) nortriptyline (Verified Allergy, Severe, RASH, 11/03/17) Reported Meds & Prescriptions Reported Meds & Active Scripts Active Reported Aspirin 81 Mg Chew 81 Mg PO DAILY Synthroid (Levothyroxine Sodium) 75 Mcg Tab 75 Mcg PO DAILY Pantoprazole (Pantoprazole Sodium) 40 Mg Tab 40 Mg PO DAILY Uloric (Febuxostat) 40 Mg Tab Tab PO EVERY OTHER DAY Furosemide 40 Mg Tab 20 Mg PO BID Plaquenil (Hydroxychloroquine Sulfate) 200 Mg Tab 200 Mg PO DAILY Take with food Cozaar (Losartan Potassium) 25 Mg Tab 25 Mg PO DAILY Amiodarone (Amiodarone HCl) 200 Mg Tab 100 Mg PO DAILY Eliquis (Apixaban) 2.5 Mg Tab 2.5 Mg PO BID Review of Systems Except as stated in HPI: all other systems reviewed are Neg Physical Exam Narrative GENERAL: SKIN: Warm and dry. HEAD: Atraumatic. Normocephalic. EYES: Pupils equal and round. No scleral icterus. No injection or drainage. ENT: No nasal bleeding or discharge. Mucous membranes pink and moist. Tongue is midline. No uvula deviation. NECK: Trachea midline. No JVD. CARDIOVASCULAR: Regular rate and rhythm. No murmurs, S3, S4. RESPIRATORY: No accessory muscle use. Crackles heard in the lower lung bagley. Breath sounds equal bilaterally. GASTROINTESTINAL: Abdomen soft, non-tender, nondistended. Hepatic and splenic margins not palpable. MUSCULOSKELETAL: Extremities without clubbing, cyanosis, or edema. No obvious deformities. 2+ pitting edema in the lower extremities bilaterally. 2+ pulses bilaterally. Full range of motion of the upper and lower extremities bilaterally. NEUROLOGICAL: Awake and alert. No obvious cranial nerve deficits. Motor grossly within normal limits. Five out of 5 muscle strength in the arms and legs. Normal speech. PSYCHIATRIC: Appropriate mood and affect; insight and judgment normal. Data Data Last Documented VS Vital Signs Date Time Temp Pulse Resp B/P (MAP) Pulse Ox O2 Delivery O2 Flow Rate FiO2 11/03/17 17:01 71 19 158/67 (97) 100 Nasal Cannula 2.00 11/03/17:18 97.5 Orders Orders Electrocardiogram (11/03/17 14:22) Complete Blood Count With Diff (11/03/17 14:22) Comprehensive Metabolic Panel (11/03/17:) B-Type Natriuretic Peptide (11/03/17 14:) Prothrombin Time / Inr (Pt) (11/03/17 14:22) Act Partial Throm Time (Ptt) (11/03/17 14:22) Magnesium (Mg) (11/03/17 14:22) Thyroid Stimulating Hormone (11/03/17 14:22) Chest, Single Ap (11/03/17 14:22) Iv Access Insert/Monitor (11/03/17 14:22) Ecg Monitoring (11/03/17 14:22) Oximetry (11/03/17 14:22) Furosemide Inj (Lasix Inj) (11/03/17 16:00) Ckmb (Isoenzyme) Profile (11/03/17 14:30) Troponin I (11/03/17 14:30) CKMB (11/03/17 14:30) CKMB% (11/03/17 14:30) Admit Order (Ed Use Only) (11/03/17 17:15) Admit To Inpatient (11/03/17 ) Vital Signs (Adult) MARINA.Q4H (11/03/17 17:17) Layout Former / Telemetry MARINA.Q8H (11/03/17 17:17) Intake + Output MARINA.QSHIFT (11/03/17 17:17) Diet Heart Healthy (11/03/17 Dinner) Sodium Chloride 0.9% Flush (Ns Flush) (11/03/17 21:00) Sodium Chloride 0.9% Flush (Ns Flush) (11/03/17 17:30) Furosemide Inj (Lasix Inj) (11/04/17 09:00) Potassium Chloride (Kcl) (11/03/17 21:00) Aspirin Chew (Aspirin Chew) (11/04/17 09:00) Basic Metabolic Panel (Bmp) (11/04/17 06:00) Troponin I (11/03/17 20:30) Troponin I (11/04/17 02:30) Electrocardiogram (11/03/17 20:30) Resp Oxygen Alex C Titrat 1-4 L (11/03/17 ) Pt Request For Service (11/03/17 17:17) Consult Cardiology (11/03/17 ) Heparin Inj (Heparin Inj) (11/03/17 17:30) Marc Bilateral/Knee High MARINA.QSHIFT (11/03/17 17:17) Inpatient Certification (11/03/17 ) Amiodarone (Cordarone) (11/04/17 09:00) Apixaban (Eliquis) (11/03/17 21:00) Hydroxychloroquine (Plaquenil) (11/04/17 09:00) Losartan (Cozaar) (11/04/17 09:00) Pantoprazole (Protonix) (11/04/17 09:00) Levothyroxine (Synthroid) (11/04/17 06:00) Labs Laboratory Tests Test 11/03/17 14:30 White Blood Count 4.2 TH/MM3 Red Blood Count 4.01 MIL/MM3 Hemoglobin 11.3 GM/DL Hematocrit 35.2 % Mean Corpuscular Volume 87.7 FL Mean Corpuscular Hemoglobin 28.1 PG Mean Corpuscular Hemoglobin Concent 32.1 % Red Cell Distribution Width 17.0 % Platelet Count 244 TH/MM3 Mean Platelet Volume 9.1 FL Neutrophils (%) (Auto) 67.5 % Lymphocytes (%) (Auto) 20.2 % Monocytes (%) (Auto) 11.5 % Eosinophils (%) (Auto) 0.0 % Basophils (%) (Auto) 0.8 % Neutrophils # (Auto) 2.8 TH/MM3 Lymphocytes # (Auto) 0.8 TH/MM3 Monocytes # (Auto) 0.5 TH/MM3 Eosinophils # (Auto) 0.0 TH/MM3 Basophils # (Auto) 0.0 TH/MM3 CBC Comment DIFF FINAL Differential Comment Prothrombin Time 11.2 SEC Prothromb Time International Ratio 1.1 RATIO Activated Partial Thromboplast Time 29.2 SEC Blood Urea Nitrogen 24 MG/DL Creatinine 1.63 MG/DL Random Glucose 93 MG/DL Total Protein 7.0 GM/DL Albumin 3.4 GM/DL Calcium Level 8.8 MG/DL Magnesium Level 2.5 MG/DL Alkaline Phosphatase 95 U/L Aspartate Amino Transf (AST/SGOT) 57 U/L Alanine Aminotransferase (ALT/SGPT) 34 U/L Total Bilirubin 0.6 MG/DL Sodium Level 139 MEQ/L Potassium Level 3.6 MEQ/L Chloride Level 96 MEQ/L Carbon Dioxide Level 33.0 MEQ/L Anion Gap 10 MEQ/L Estimat Glomerular Filtration Rate 30 ML/MIN Total Creatine Kinase 224 U/L Creatine Kinase MB 9.9 NG/ML Creatine Kinase MB % 4.4 % Troponin I 0.14 NG/ML Thyroid Stimulating Hormone 3rd Gen 30.600 uIU/ML MDM Medical Decision Making Medical Screen Exam Complete: Yes Emergency Medical Condition: Yes Medical Record Reviewed: Yes Interpretation(s) Last Impressions Chest X-Ray 11/03/17 1422 Signed Impressions: Service Date/Time: Friday, November 03, 2017 14:40 - CONCLUSION: 1. Very small left pleural effusion. Stable enlargement of the cardiac silhouette. 2. Chronic linear opacities at the right base most likely represent either atelectasis or scar. Rupesh Max MD CBC & BMP Diagram 11/03/17 14:30 Total Protein 7.0, Albumin 3.4, Calcium Level 8.8, Magnesium Level 2.5, Alkaline Phosphatase 95, Aspartate Amino Transf (AST/SGOT) 57 H, Alanine Aminotransferase (ALT/SGPT) 34, Total Bilirubin 0.6 EKG showed paced rhythm. No sign of acute ischemia or arrhythmia read by me and attending. Differential Diagnosis Acute CHF versus chronic CHF versus acute kidney injury versus breath versus shortness of breath with exertion Narrative Course 87-year-old female that presents to the ED for evaluation of likely CHF exacerbation. Patient was properly examined and was found to have signs and symptoms consistent appears to be likely CHF exacerbation. She was here about a week ago and was recommended to be admitted for CHF but she apparently did not wanted to and was followed by her au pair who increased her Lasix. She has been continued to gain weight and continued to have more shortness of breath since. She is actually gained 5 pounds. At this time this appears to be likely CHF exacerbation. We will do labs and imaging. Patient was given IV Lasix. labs and imaging showed signs of CHF, troponin elevated but this appears to be chronic for her. Recommendations for admission for CHF exacerbation. Patient agrees with this. Case discussed with Dr. Santos who agrees to admission. Diagnosis Primary Impression: Acute exacerbation of CHF (congestive heart failure) Qualified Codes: I50.9 - Heart failure, unspecified Admitting Information Admitting Physician Requests: Clinton Kevin November 03, 2017 15:52
[2017-11-03] MEDS ORDERED: FUROSEMIDE 40 MG/4 ML VIAL IV PUSH ONE (16:00)
[2017-11-03 16:06] LABS: TROPONIN I 0.14 NG/ML (0.02-0.05)
[2017-11-03 17:01] VITALS: BP 158/67; PULSE 71; RESP 19; O2SAT 100
[2017-11-03 17:30] VITALS: O2SAT 100
[2017-11-03] MEDS ORDERED: HEPARIN SODIUM - SQ 10,000 UNITS/ML VIAL SQ SCH (17:30)
[2017-11-03] MEDS ORDERED: SODIUM CHLORIDE 0.9% FLUSH 10 ML FLUSH IV FLUSH PRN (17:30)
--- NOTE | 2017-11-03 17:41 | PD ---
Physical Exam Date Seen by Provider: November 03, 2017 Time Seen by Provider: 16:30 Narrative I, Dr. Carlson, have reviewed the advance practice practitioner's documentation and am in agreement, met with the patient face to face, made the diagnosis, and the medical decision making was done by me. *My assessment and Findings: Patient seen and evaluated with PA, please see PAs note for further details. Patient has long history of CHF, had been told last week that she has worsening CHF, but at that time did not want to get admitted, here because of worsening weakness, dyspnea on exertion, concerning for worsening CHF. On exam, she appears febrile, slow saturations, pulmonary exam is concerning as well as leg swelling concerning for underlying CHF. EKG shows a paced rhythm at a rate of 70 bpm. Laboratory Tests Test 11/03/17 14:30 Hemoglobin 11.3 GM/DL (11.6-15.3) Monocytes (%) (Auto) 11.5 % (0.0-8.0) Lymphocytes # (Auto) 0.8 TH/MM3 (1.0-4.8) Blood Urea Nitrogen 24 MG/DL (7-18) Creatinine 1.63 MG/DL (0.50-1.00) Aspartate Amino Transf (AST/SGOT) 57 U/L (15-37) Chloride Level 96 MEQ/L (98-107) Carbon Dioxide Level 33.0 MEQ/L (21.0-32.0) Estimat Glomerular Filtration Rate 30 ML/MIN (>89) Total Creatine Kinase 224 U/L (26-192) Creatine Kinase MB 9.9 NG/ML (0.5-3.6) Creatine Kinase MB % 4.4 % (0.0-4.0) Troponin I 0.14 NG/ML (0.02-0.05) B-Type Natriuretic Peptide 1603 PG/ML (0-100) Thyroid Stimulating Hormone 3rd Gen 30.600 uIU/ML (0.358-3.740) Last 24 hours Impressions Chest X-Ray 11/03/17 1422 Signed Impressions: Service Date/Time: Friday, November 03, 2017 14:40 - CONCLUSION: 1. Very small left pleural effusion. Stable enlargement of the cardiac silhouette. 2. Chronic linear opacities at the right base most likely represent either atelectasis or scar. Rupesh Max MD Clinical concerning for CHF, and BNP is elevated, patient was given diuretics in the ER with plans for admission for further treatment. Data Data Last Documented VS Vital Signs Date Time Temp Pulse Resp B/P (MAP) Pulse Ox O2 Delivery O2 Flow Rate FiO2 11/03/17 17:01 71 19 158/67 (97) 100 Nasal Cannula 2.00 11/03/17 14:18 97.5 Orders Orders Electrocardiogram (11/03/17 14:22) Complete Blood Count With Diff (11/03/17 14:22) Comprehensive Metabolic Panel (11/03/17 14:22) B-Type Natriuretic Peptide (11/03/17 14:22) Prothrombin Time / Inr (Pt) (11/03/17 14:22) Act Partial Throm Time (Ptt) (11/03/17 14:) Magnesium (Mg) (11/03/17 14:22) Thyroid Stimulating Hormone (11/03/17 14:22) Chest, Single Ap (11/03/17 14:22) Iv Access Insert/Monitor (11/03/17 14:22) Ecg Monitoring (11/03/17 14:22) Oximetry (11/03/17 14:22) Furosemide Inj (Lasix Inj) (11/03/17 16:00) Ckmb (Isoenzyme) Profile (11/03/17 14:30) Troponin I (11/03/17 14:30) CKMB (11/03/17 14:30) CKMB% (11/03/17 14:30) Admit Order (Ed Use Only) (11/03/17 17:15) Labs Laboratory Tests Test 11/03/17 14:30 White Blood Count 4.2 TH/MM3 Red Blood Count 4.01 MIL/MM3 Hemoglobin 11.3 GM/DL Hematocrit 35.2 % Mean Corpuscular Volume 87.7 FL Mean Corpuscular Hemoglobin 28.1 PG Mean Corpuscular Hemoglobin Concent 32.1 % Red Cell Distribution Width 17.0 % Platelet Count 244 TH/MM3 Mean Platelet Volume 9.1 FL Neutrophils (%) (Auto) 67.5 % Lymphocytes (%) (Auto) 20.2 % Monocytes (%) (Auto) 11.5 % Eosinophils (%) (Auto) 0.0 % Basophils (%) (Auto) 0.8 % Neutrophils # (Auto) 2.8 TH/MM3 Lymphocytes # (Auto) 0.8 TH/MM3 Monocytes # (Auto) 0.5 TH/MM3 Eosinophils # (Auto) 0.0 TH/MM3 Basophils # (Auto) 0.0 TH/MM3 CBC Comment DIFF FINAL Differential Comment Prothrombin Time 11.2 SEC Prothromb Time International Ratio 1.1 RATIO Activated Partial Thromboplast Time 29.2 SEC Blood Urea Nitrogen 24 MG/DL Creatinine 1.63 MG/DL Random Glucose 93 MG/DL Total Protein 7.0 GM/DL Albumin 3.4 GM/DL Calcium Level 8.8 MG/DL Magnesium Level 2.5 MG/DL Alkaline Phosphatase 95 U/L Aspartate Amino Transf (AST/SGOT) 57 U/L Alanine Aminotransferase (ALT/SGPT) 34 U/L Total Bilirubin 0.6 MG/DL Sodium Level 139 MEQ/L Potassium Level 3.6 MEQ/L Chloride Level 96 MEQ/L Carbon Dioxide Level 33.0 MEQ/L Anion Gap 10 MEQ/L Estimat Glomerular Filtration Rate 30 ML/MIN Total Creatine Kinase 224 U/L Creatine Kinase MB 9.9 NG/ML Creatine Kinase MB % 4.4 % Troponin I 0.14 NG/ML B-Type Natriuretic Peptide 1603 PG/ML Thyroid Stimulating Hormone 3rd Gen 30.600 uIU/ML [facility] Medical Record Reviewed: Yes Supervised Visit with NAZANIN: Yes Diagnosis Primary Impression: Acute exacerbation of CHF (congestive heart failure) Qualified Codes: I50.9 - Heart failure, unspecified Admitting Information Admitting Physician Requests: it Cris Carlson MD November 03, 2017 17:41
[2017-11-03 18:20] VITALS: BP 154/66
[2017-11-03] MEDS ORDERED: PILL SPLITTER OTHER PRN (18:30)
--- NOTE | 2017-11-03 18:41 | HHI.HP ---
cc: Bruno Seymour MD [facility] Service [facility] Primary Care Physician Bruno Seymour MD Admission Diagnosis acute CHF exacerbation, failed outpatient treatment Diagnoses: (1) Acute exacerbation of CHF (congestive heart failure) (2) Acute on chronic diastolic CHF (congestive heart failure) (3) Acute on chronic systolic heart failure (4) MIHIR (acute kidney injury) (5) Gastroesophageal reflux (6) Lupus (systemic lupus erythematosus) (7) Elevated troponin I level (8) Hypothyroidism Chief Complaint: shortness of breath Travel History International Travel<30 Days: No Contact w/Intl Traveler <30 Da: No Traveled to Known Affected Are: No History of Present Illness The patient is an 87 year old female with history of CHF who presented with complaint of worsening dyspnea and lower extremity swelling. She was seen in the ER on 10/23/17 for similar symptoms. At that time she declined admission and was seen as outpatient by her talent acquisition operations manager. Her Lasix was increased, but her symptoms have not improved. She denies chest pain. Review of Systems Constitutional: DENIES: Fever, Chills, Night Sweats Eyes: DENIES: Blurred vision, Vision loss Ears, nose, mouth, throat: DENIES: Hearing loss Respiratory: COMPLAINS OF: Shortness of breath, DENIES: Cough, Wheezing, Sputum production Cardiovascular: COMPLAINS OF: Dyspnea on Exertion, Lower Extremity Edema, DENIES: Chest pain, Palpitations Gastrointestinal: DENIES: Abdominal pain, Constipation, Diarrhea, Nausea, Vomiting Genitourinary: DENIES: Urinary frequency, Urinary incontinence, Urgency, Hematuria, Dysuria, Nocturia Musculoskeletal: DENIES: Joint pain, Muscle aches Integumentary: DENIES: Pruritus, Rash Hematologic/lymphatic: DENIES: Bruising Neurologic: DENIES: Headache Past Family Social History Past Medical History Coronary artery disease status post stent placement Atrial fibrillation Osteoarthritis Lupus Urinary retention requiring urethral dilation every couple of months Hypertension Past Surgical History Appendectomy Pacemaker placement Resection of an ovarian abnormality. Reported Medications Aspirin 81 Mg Chew 81 Mg PO DAILY Synthroid (Levothyroxine Sodium) 75 Mcg Tab 75 Mcg PO DAILY Pantoprazole (Pantoprazole Sodium) 40 Mg Tab 40 Mg PO DAILY Uloric (Febuxostat) 40 Mg Tab Tab PO EVERY OTHER DAY Furosemide 40 Mg Tab 20 Mg PO BID Plaquenil (Hydroxychloroquine Sulfate) 200 Mg Tab 200 Mg PO DAILY Take with food Cozaar (Losartan Potassium) 25 Mg Tab 25 Mg PO DAILY Amiodarone (Amiodarone HCl) 200 Mg Tab 100 Mg PO DAILY Eliquis (Apixaban) 2.5 Mg Tab 2.5 Mg PO BID Allergies: Coded Allergies: nitrofurantoin (Verified Allergy, Severe, SWELLING, 11/03/17) nortriptyline (Verified Allergy, Severe, RASH, 11/03/17) Family History Heart disease Father had lung cancer Social History Denies alcohol, tobacco, or illicit drug use. Physical Exam Vital Signs Vital Signs Date Time Temp Pulse Resp B/P (MAP) Pulse Ox O2 Delivery O2 Flow Rate FiO2 11/03/17 17:30 100 Nasal Cannula 2.00 11/03/17 17:01 71 19 158/67 (97) 100 Nasal Cannula 2.00 11/03/17 14:30 77 26 141/65 (90) 100 Nasal Cannula 2.00 11/03/17 14:26 Nasal Cannula 1.00 11/03/17 14:18 97.5 77 28 149/65 (93) 91 11/03/17 14:18 91 Room Air Physical Exam GENERAL: Thin elderly female in no acute distress. HEENT: Normocephalic, atraumatic. Pupils equal, round and reactive. Extraocular movements intact. No scleral icterus. No injection or drainage. Oropharynx is clear. Mucous membranes are moist. CARDIOVASCULAR: Regular rate and rhythm without murmurs, gallops, or rubs. RESPIRATORY: Clear to auscultation. No wheezes, rales, or rhonchi. Breathing is non-labored. GASTROINTESTINAL: Abdomen soft, non-tender, nondistended. EXTREMITIES: No lower extremity edema. No calf tenderness. PSYCH: Alert and oriented x 3. BREAST: Patient asked me to examine her breasts (with her son at bedside) as she had noticed a "hard area" on the right breast last night. Dense area noted on lateral right breast that is nontender. Laboratory Laboratory Tests Test 11/03/17 14:30 White Blood Count 4.2 Red Blood Count 4.01 Hemoglobin 11.3 Hematocrit 35.2 Mean Corpuscular Volume 87.7 Mean Corpuscular Hemoglobin 28.1 Mean Corpuscular Hemoglobin Concent 32.1 Red Cell Distribution Width 17.0 Platelet Count 244 Mean Platelet Volume 9.1 Neutrophils (%) (Auto) 67.5 Lymphocytes (%) (Auto) 20.2 Monocytes (%) (Auto) 11.5 Eosinophils (%) (Auto) 0.0 Basophils (%) (Auto) 0.8 Neutrophils # (Auto) 2.8 Lymphocytes # (Auto) 0.8 Monocytes # (Auto) 0.5 Eosinophils # (Auto) 0.0 Basophils # (Auto) 0.0 CBC Comment DIFF FINAL Differential Comment Prothrombin Time 11.2 Prothromb Time International Ratio 1.1 Activated Partial Thromboplast Time 29.2 Blood Urea Nitrogen 24 Creatinine 1.63 Random Glucose 93 Total Protein 7.0 Albumin 3.4 Calcium Level 8.8 Magnesium Level 2.5 Alkaline Phosphatase 95 Aspartate Amino Transf (AST/SGOT) 57 Alanine Aminotransferase (ALT/SGPT) 34 Total Bilirubin 0.6 Sodium Level 139 Potassium Level 3.6 Chloride Level 96 Carbon Dioxide Level 33.0 Anion Gap 10 Estimat Glomerular Filtration Rate 30 Total Creatine Kinase 224 Creatine Kinase MB 9.9 Creatine Kinase MB % 4.4 Troponin I 0.14 B-Type Natriuretic Peptide 1603 Thyroid Stimulating Hormone 3rd Gen 30.600 Result Diagram: 11/03/17 1430 11/03/17 1430 Imaging Last Impressions Chest X-Ray 11/03/17 1422 Signed Impressions: Service Date/Time: Friday, November 03, 2017 14:40 - CONCLUSION: 1. Very small left pleural effusion. Stable enlargement of the cardiac silhouette. 2. Chronic linear opacities at the right base most likely represent either atelectasis or scar. Rupesh Max MD Capdarnelli VTE Risk Assessment Caprini VTE Risk Assessment: Mod/High Risk (score >= 2) Caprini Risk Assessment Model Point Value = 1 Point Value = 2 Point Value = 3 Point Value = 5 Age 41-60 Minor surgery BMI > 25 kg/m2 Swollen legs Varicose veins or History of unexplained or recurrent spontaneous Oral contraceptives or hormone replacement Sepsis (< 1 month) Serious lung disease, including pneumonia (< 1 month) Abnormal pulmonary function Acute myocardial infarction Congestive heart failure (< 1 month) History of inflammatory bowel disease Medical patient at bed rest Age 61-74 Arthroscopic surgery Major open surgery (> 45 min) Laparoscopic surgery (> 45 min) Malignancy Confined to bed (> 72 hours) Immobilizing plaster cast Central venous access Age >= 75 History of VTE Family history of VTE Factor V Leiden Prothrombin [id number] Lupus anticoagulant Anticardiolipin antibodies Elevated serum homocysteine Heparin-induced thrombocytopenia Other congenital or acquired thrombophilia Stroke (< 1 month) Elective arthroplasty Hip, pelvis, or leg fracture Acute spinal cord injury (< 1 month) Prophylaxis Regimen Total Risk Factor Score Risk Level Prophylaxis Regimen 0-1 Low Early ambulation 2 Moderate Order ONE of the following: *Sequential Compression Device (SCD) *Heparin 5000 units SQ BID 3-4 Higher Order ONE of the following medications: *Heparin 5000 units SQ TID *Enoxaparin/Lovenox 40 mg SQ daily (WT < 150 kg, CrCl > 30 mL/min) *Enoxaparin/Lovenox 30 mg SQ daily (WT < 150 kg, CrCl > 10-29 mL/min) *Enoxaparin/Lovenox 30 mg SQ BID (WT < 150 kg, CrCl > 30 mL/min) AND/OR *Sequential Compression Device (SCD) 5 or more Highest Order ONE of the following medications: *Heparin 5000 units SQ TID (Preferred with Epidurals) *Enoxaparin/Lovenox 40 mg SQ daily (WT < 150 kg, CrCl > 30 mL/min) *Enoxaparin/Lovenox 30 mg SQ daily (WT < 150 kg, CrCl > 10-29 mL/min) *Enoxaparin/Lovenox 30 mg SQ BID (WT < 150 kg, CrCl > 30 mL/min) AND *Sequential Compression Device (SCD) Assessment and Plan Assessment and Plan 1. Acute exacerbation of chronic systolic and diastolic congestive heart failure: Continue diuresis with Lasix. Monitor on telemetry. Check echocardiogram. Consult patient's talent acquisition operations manager. Continue supplemental oxygen. Patient uses 2 L of oxygen at home. 2. Elevated troponin: Serum troponin level is unchanged from ER visit on . Monitor serial cardiac enzymes and EKGs. 3. Acute kidney injury superimposed on chronic kidney disease: Creatinine slightly elevated above patient's baseline. Monitor labs closely with diuresis. 4. Hypothyroidism: TSH significantly elevated. Increase Synthroid. Patient will need repeat thyroid labs in 4-6 weeks. 5. GERD: Continue PPI. 6. Lupus: Continue Plaquenil. 7. Atrial fibrillation: Continue amiodarone. Eliquis for anticoagulation. 8. Urinary retention: Barboza catheter in place. Patient states that she has chronic urinary retention and requires urethral dilatation every few months. 9. DVT prophylaxis: Eliquis. Code Status DNR. Discussed with patient and son at bedside. Problem Qualifiers (1) Acute exacerbation of CHF (congestive heart failure): Qualified Codes: I50.9 - Heart failure, unspecified Ger Fulton MD November 03, 2017 18:41
[2017-11-03 20:00] VITALS: BP 132/63; PULSE 76; PULSE 79; RESP 17; TEMP 97.9; O2SAT 98
[2017-11-03] MEDS: POTASSIUM CHLORIDE 20 MEQ CONTROLLED RELEASE TAB PO SCH (20:20)
[2017-11-03] MEDS: APIXABAN 2.5 MG TABLET PO SCH (20:20)
[2017-11-03] MEDS: SODIUM CHLORIDE 0.9% FLUSH 10 ML FLUSH IV FLUSH SCH (20:21)
[2017-11-04] VITALS (10 sets, daily range): BP systolic 123–148; BP diastolic 58–69; PULSE 67–82; RESP 17–19; TEMP 97.2–97.8; O2SAT 92–100
[2017-11-04] MEDS: ACETAMINOPHEN 325 MG TAB PO PRN ×3 (02:27→19:59)
[2017-11-04 04:43] LABS: CALCIUM 8.6 MG/DL (8.5-10.1); CREATININE 1.46 MG/DL (0.50-1.00)
[2017-11-04 04:46] LABS: TROPONIN I 0.14 NG/ML (0.02-0.05)
[2017-11-04] MEDS: LEVOTHYROXINE SODIUM 88 MCG TAB PO SCH (06:37)
[2017-11-04] MEDS: SODIUM CHLORIDE 0.9% FLUSH 10 ML FLUSH IV FLUSH SCH ×2 (07:37→20:00)
[2017-11-04] MEDS: PANTOPRAZOLE SOD 40 MG DELAYED RELEASE TAB PO SCH (07:47)
[2017-11-04] MEDS: POTASSIUM CHLORIDE 20 MEQ CONTROLLED RELEASE TAB PO SCH ×2 (07:47→20:00)
[2017-11-04] MEDS: ASPIRIN 81 MG CHEW TAB CHEW SCH (07:47)
[2017-11-04] MEDS: AMIODARONE 200 MG TAB PO SCH (07:48)
[2017-11-04] MEDS: FUROSEMIDE 40 MG/4 ML VIAL IVP SCH ×2 (07:48→17:23)
[2017-11-04] MEDS: HYDROXYCHLOROQUINE SULFATE 200 MG TAB PO SCH (07:48)
[2017-11-04] MEDS: APIXABAN 2.5 MG TABLET PO SCH ×2 (07:48→20:00)
[2017-11-04] MEDS: LOSARTAN 25 MG TAB PO SCH (07:48)
--- NOTE | 2017-11-04 13:38 | HHI.PR ---
Subjective Remarks Follow up CHF exacerbation. Patient states that she is feeling better today. Dyspnea is improved. Denies chest pain. Swelling is improving. Objective Vitals Vital Signs Date Time Temp Pulse Resp B/P (MAP) Pulse Ox O2 Delivery O2 Flow Rate FiO2 11/04/17 13:18 92 Nasal Cannula 2.00 11/04/17 08:00 97.8 79 18 133/63 (86) 96 11/04/17 07:51 97.8 78 18 133/63 (86) 96 11/04/17 05:33 95 11/04/17 04:00 97.4 70 17 137/65 (89) 95 11/04/17 04:00 69 11/04/17 00:00 97.4 71 19 148/69 (95) 98 11/04/17 00:00 67 11/03/17 20:00 76 11/03/17 20:00 97.9 79 17 132/63 (86) 98 11/03/17 18:20 69 18 154/66 (95) 100 Nasal Cannula 2.00 11/03/17 17:30 100 Nasal Cannula 2.00 11/03/17 17:01 71 19 158/67 (97) 100 Nasal Cannula 2.00 11/03/17 14:30 77 26 141/65 (90) 100 Nasal Cannula 2.00 11/03/17 14:26 Nasal Cannula 1.00 11/03/17 14:18 97.5 77 28 149/65 (93) 91 11/03/17 14:18 91 Room Air I/O 11/03/17 11/03/17 11/03/17 11/04/17 11/04/17 11/04/17 07:00 15:00 23:00 07:00 15:00 23:00 Intake Total 240 ml Output Total 1050 ml Balance -810 ml Intake Oral 240 ml Output Urine Total 1050 ml # Voids 0 # Bowel Movements 0 Result Diagram: 11/03/17 1430 11/04/17 0330 Imaging Last Impressions Chest X-Ray 11/03/17 1422 Signed Impressions: Service Date/Time: Friday, November 03, 2017 14:40 - CONCLUSION: 1. Very small left pleural effusion. Stable enlargement of the cardiac silhouette. 2. Chronic linear opacities at the right base most likely represent either atelectasis or scar. Rupesh Max MD Objective Remarks General: Elderly female in no acute distress. Heart: Regular rate and rhythm. No murmur. Lungs: Decreased breath sounds in the bases. No wheezes, rales, or rhonchi. Breathing is nonlabored. Abdomen: Soft, nontender, nondistended. Extremities: 1+ bilateral lower extremity edema. Wound on right lower leg bandaged. Psych: Alert and oriented. Neuro: Normal speech. No focal deficits noted. Procedures None Urinary Catheter: No Vascular Central Line Catheter: No A/P Problem List: (1) Acute exacerbation of CHF (congestive heart failure) ICD Code: I50.9 - Heart failure, unspecified Status: Acute (2) Acute on chronic diastolic CHF (congestive heart failure) ICD Code: I50.33 - Acute on chronic diastolic CHF (congestive heart failure) Status: Acute (3) Acute on chronic systolic heart failure ICD Code: I50.23 - Acute on chronic systolic (congestive) heart failure (4) MIHIR (acute kidney injury) ICD Code: N17.9 - MIHIR (acute kidney injury) Status: Acute (5) Gastroesophageal reflux ICD Code: K21.9 - Gastroesophageal reflux Status: Acute (6) Lupus (systemic lupus erythematosus) ICD Code: M32.9 - Lupus (systemic lupus erythematosus) Status: Acute (7) Elevated troponin I level ICD Code: R79.89 - Elevated troponin I level Status: Acute (8) Hypothyroidism ICD Code: E03.9 - Hypothyroidism Status: Acute Assessment and Plan 1. Acute exacerbation of chronic systolic and diastolic congestive heart failure: Continue Lasix. Diuresing well. Strict intake/output. Monitor on telemetry. Echocardiogram ordered, but not done yet. Cardiology consultation is pending. Continue supplemental oxygen. Patient uses 2 L of oxygen at home. 2. Elevated troponin: Serum troponin level is unchanged from ER visit on . Monitor serial cardiac enzymes and EKGs. 3. Acute kidney injury superimposed on chronic kidney disease: Creatinine slightly elevated above patient's baseline. Monitor labs closely with diuresis. 4. Hypothyroidism: TSH significantly elevated. Increase Synthroid. Patient will need repeat thyroid labs in 4-6 weeks. 5. GERD: Continue PPI. 6. Lupus: Continue Plaquenil. 7. Atrial fibrillation: Continue amiodarone. Eliquis for anticoagulation. 8. Urinary retention: Barboza catheter in place. Patient states that she has chronic urinary retention and requires urethral dilatation every few months. 9. DVT prophylaxis: Eliquis. 10. CODE STATUS: DO NOT RESUSCITATE. Problem Qualifiers (1) Acute exacerbation of CHF (congestive heart failure): Qualified Codes: I50.9 - Heart failure, unspecified Ger Fulton MD November 04, 2017 13:38
--- NOTE | 2017-11-04 14:48 | PD.CONS ---
HPI Service Cardiology Consult Requested By Reason for Consult CHF Primary Care Physician Bruno Seymour MD History of Present Illness The patient is an 87 year old lady, patient well known to [facility] Director Dr. Horan, with history of CHF who presented with complaint of worsening dyspnea and lower extremity swelling. She was seen in the ER on 10/23/17 for similar symptoms. At that time she declined admission and was seen as outpatient by her local sales associate. Her Lasix was increased, but her symptoms have not improved. She denies chest pain. Review of Systems Consitutional: DENIES: Fatigue, Fever, Chills, Weight gain, Weight loss Eyes: DENIES: Amaurosis Fugax, Change in vision HEENT: DENIES: Lightheadedness, Change in hearing Respiratory: COMPLAINS OF: See HPI, Shortness of breath, Wheezing, DENIES: Cough, Snoring, Sputum production Cardiovascular: COMPLAINS OF: See HPI, DENIES: Chest pain, Palpitations, Syncope, Tachycardia Gastrointestinal: DENIES: Nausea, Vomiting, Change in bowel habits, Reflux, Bloody stools, Melena Genitourinary: DENIES: Urinary incontinence, Difficulty voiding Integumentary: DENIES: Rash Neurologic: DENIES: Tingling or numbness, Memory problems, Poor Balance, Stroke symptoms Musculoskeletal: DENIES: Joint pain, Muscle pain, Limited range of motion, Back pain Psychiatric: DENIES: Anxiety, Depression, Sleep disturbances Hematologic: DENIES: Bruising tendencies, Bleeding tendencies Endocrine: DENIES: Weight gain, Weight loss, Thyroid disease Past Family Social History Allergies: Coded Allergies: nitrofurantoin (Verified Allergy, Severe, SWELLING, 11/03/17) nortriptyline (Verified Allergy, Severe, RASH, 11/03/17) Past Medical History Coronary artery disease status post stent placement Chronic Atrial fibrillation on Eliquis Osteoarthritis Lupus Urinary retention requiring urethral dilation every couple of months Hypertension Past Surgical History Appendectomy Pacemaker placement Resection of an ovarian abnormality. Reported Medications Reported Meds & Active Scripts Active Reported Aspirin 81 Mg Chew 81 Mg PO DAILY Synthroid (Levothyroxine Sodium) 75 Mcg Tab 75 Mcg PO DAILY Pantoprazole (Pantoprazole Sodium) 40 Mg Tab 40 Mg PO DAILY Uloric (Febuxostat) 40 Mg Tab Tab PO EVERY OTHER DAY Furosemide 40 Mg Tab 20 Mg PO BID Plaquenil (Hydroxychloroquine Sulfate) 200 Mg Tab 200 Mg PO DAILY Take with food Cozaar (Losartan Potassium) 25 Mg Tab 25 Mg PO DAILY Amiodarone (Amiodarone HCl) 200 Mg Tab 100 Mg PO DAILY Eliquis (Apixaban) 2.5 Mg Tab 2.5 Mg PO BID Active Ordered Medications Current Medications Medications (Trade) Dose Ordered Sig/Harley Route Start Time Stop Time Status Last Admin (NS Flush) 2 ml BID IV FLUSH 11/03/17 21:00 11/04/17 07:37 (NS Flush) 2 ml UNSCH PRN IV FLUSH 11/03/17 17:30 (Lasix Inj) 40 mg BID@09,18 IVP 11/04/17 09:00 11/04/17 07:48 (KCl) 20 meq BID PO 11/03/17 21:00 11/04/17 07:47 (Aspirin Chew) 81 mg DAILY CHEW 11/04/17 09:00 11/04/17 07:47 (Cordarone) 100 mg DAILY PO 11/04/17 09:00 11/04/17 07:48 (Eliquis) 2.5 mg BID PO 11/03/17 21:00 11/04/17 07:48 (Plaquenil) 200 mg DAILY PO 11/04/17 09:00 11/04/17 07:48 (Cozaar) 25 mg DAILY PO 11/04/17 09:00 11/04/17 07:48 (Protonix) 40 mg DAILY PO 11/04/17 09:00 11/04/17 07:47 (Synthroid) 88 mcg DAILY@0600 PO 11/04/17 06:00 11/04/17 06:37 (Pill Splitter) 1 ea UNSCH PRN OTHER 11/03/17 18:30 (Tylenol) 650 mg Q4H PRN PO 11/04/17 02:30 11/04/17 08:55 Family History Heart disease Father had lung cancer Social History Denies alcohol, tobacco, or illicit drug use. Physical Exam Vital Signs Vital Signs Date Time Temp Pulse Resp B/P (MAP) Pulse Ox O2 Delivery O2 Flow Rate FiO2 11/04/17 13:18 92 Nasal Cannula 2.00 11/04/17 08:00 97.8 79 18 133/63 (86) 96 11/04/17 07:51 97.8 78 18 133/63 (86) 96 11/04/17 05:33 95 11/04/17 04:00 97.4 70 17 137/65 (89) 95 11/04/17 04:00 69 11/04/17 00:00 97.4 71 19 148/69 (95) 98 11/04/17 00:00 67 11/03/17 20:00 76 11/03/17 20:00 97.9 79 17 132/63 (86) 98 11/03/17 18:20 69 18 154/66 (95) 100 Nasal Cannula 2.00 11/03/17 17:30 100 Nasal Cannula 2.00 11/03/17 17:01 71 19 158/67 (97) 100 Nasal Cannula 2.00 Physical Exam General: Elderly female in no acute distress. Thin Heart: Regular rate and rhythm. 2/6 systolic murmur at LLSB. Lungs: Decreased breath sounds in the bases. No wheezes, rales, or rhonchi. Breathing is nonlabored. Abdomen: Soft, nontender, nondistended. Extremities: 1+ bilateral lower extremity edema. Wound on right lower leg bandaged. Psych: Alert and oriented. Neuro: Normal speech. No focal deficits noted. Laboratory Laboratory Tests Test 11/03/17 20:16 11/04/17 03:30 Troponin I 0.15 0.14 Blood Urea Nitrogen 22 Creatinine 1.46 Random Glucose 81 Calcium Level 8.6 Sodium Level 140 Potassium Level 3.6 Chloride Level 96 Carbon Dioxide Level 36.0 Anion Gap 8 Estimat Glomerular Filtration Rate 34 Result Diagram: 11/03/17 1430 11/04/17 0330 Assessment and Plan Problem List: (1) Chronic a-fib ICD Codes: I48.2 - Chronic atrial fibrillation (2) Systolic CHF, acute on chronic ICD Codes: I50.23 - Acute on chronic systolic (congestive) heart failure (3) Hypothyroidism ICD Codes: E03.9 - Hypothyroidism Status: Acute (4) Gastroesophageal reflux ICD Codes: K21.9 - Gastroesophageal reflux Status: Acute Assessment and Plan 87 yo lady, patient of Dr. Jarvis Horan 1. CHF, systolic, chronic, LVEF 35-40% by Echo 06/20/2017 Continue Lasix. Strict intake/output. Echocardiogram ordered, but not done yet. 2. Valvular heart disease Moderate TR AR, mild MR 3. Chronic afib, on 'Eliquis for stroke prevention.Continue amiodarone. 4. Hypothyroidism, slightly high TSH, on Levothyroxine. 5. GERD: Continue PPI. 6. Lupus: Continue Plaquenil. Wing Ruba Medley MD November 04, 2017 14:48
[2017-11-05] VITALS (9 sets, daily range): BP systolic 104–138; BP diastolic 54–65; PULSE 70–80; RESP 18–19; TEMP 97.4–98; O2SAT 98–100
[2017-11-05] MEDS: LEVOTHYROXINE SODIUM 88 MCG TAB PO SCH (06:33)
[2017-11-05] MEDS: ACETAMINOPHEN 325 MG TAB PO PRN ×2 (06:33→17:55)
[2017-11-05] MEDS: PANTOPRAZOLE SOD 40 MG DELAYED RELEASE TAB PO SCH (08:52)
[2017-11-05] MEDS: FUROSEMIDE 40 MG/4 ML VIAL IVP SCH (08:52)
[2017-11-05] MEDS: ASPIRIN 81 MG CHEW TAB CHEW SCH (08:52)
[2017-11-05] MEDS: POTASSIUM CHLORIDE 20 MEQ CONTROLLED RELEASE TAB PO SCH ×2 (08:53→20:49)
[2017-11-05] MEDS: LOSARTAN 25 MG TAB PO SCH (08:53)
[2017-11-05] MEDS: AMIODARONE 200 MG TAB PO SCH (08:53)
[2017-11-05] MEDS: HYDROXYCHLOROQUINE SULFATE 200 MG TAB PO SCH (08:53)
[2017-11-05] MEDS: SODIUM CHLORIDE 0.9% FLUSH 10 ML FLUSH IV FLUSH SCH ×2 (08:53→20:49)
[2017-11-05] MEDS: APIXABAN 2.5 MG TABLET PO SCH ×2 (08:54→20:49)
[2017-11-05 10:45] LABS: AUTOMATED NEUTROPHIL # 2.7 TH/MM3 (1.8-7.7); BASOPHIL % 0.9 % (0.0-2.0); HEMATOCRIT 34.7 % (35.0-46.0); HEMOGLOBIN 11.1 GM/DL (11.6-15.3); LYMPH % 16.2 % (9.0-44.0); LYMPHOCYTE # 0.6 TH/MM3 (1.0-4.8); MEAN CORPUSCULAR HEMOGLOBIN 28.1 PG (27.0-34.0); MEAN CORPUSCULAR HGB CONC 31.9 % (32.0-36.0); MEAN PLATELET VOLUME 8.9 FL (7.0-11.0); MONO % 8.9 % (0.0-8.0); MONOCYTE # 0.3 TH/MM3 (0-0.9); PLATELET COUNT 230 TH/MM3 (150-450); RED BLOOD COUNT 3.95 MIL/MM3 (4.00-5.30); RED CELL DISTRIBUTION WIDTH 17.2 % (11.6-17.2); WHITE BLOOD COUNT 3.6 TH/MM3 (4.0-11.0)
[2017-11-05 11:10] LABS: BICARBONATE 35.2 MEQ/L (21.0-32.0); BLOOD UREA NITROGEN 19 MG/DL (7-18); CALCIUM 8.7 MG/DL (8.5-10.1); CHLORIDE 95 MEQ/L (98-107); CREATININE 1.36 MG/DL (0.50-1.00); GLOMERULAR FILTRATION RATE 37 ML/MIN (>89); GLUCOSE,RANDOM 65 MG/DL (74-106); SODIUM (NA) 138 MEQ/L (136-145)
[2017-11-05 11:14] LABS: TROPONIN I 0.14 NG/ML (0.02-0.05)
--- NOTE | 2017-11-05 11:21 | HHI.PR ---
Subjective Remarks Follow up CHF exacerbation. Patient states that she is feeling better today. Less dyspnea. No chest pain. Objective Vitals Vital Signs Date Time Temp Pulse Resp B/P (MAP) Pulse Ox O2 Delivery O2 Flow Rate FiO2 11/05/17 08:52 99 Nasal Cannula 2.00 11/05/17 08:00 Nasal Cannula 2.00 11/05/17 08:00 97.8 78 18 124/61 (82) 99 11/05/17 08:00 77 11/05/17 04:00 97.6 72 18 128/60 (82) 98 11/05/17 04:00 79 11/05/17 04:00 Nasal Cannula 2.00 11/05/17 00:00 75 11/05/17 00:00 97.6 78 19 138/65 (89) 98 11/05/17 00:00 Nasal Cannula 2.00 11/04/17 20:29 98 Nasal Cannula 2.00 11/04/17 20:00 79 11/04/17 20:00 Nasal Cannula 2.00 11/04/17 20:00 97.2 82 18 123/58 (79) 100 11/04/17 16:00 97.6 68 18 141/65 (90) 97 11/04/17 13:18 92 Nasal Cannula 2.00 11/04/17 12:00 97.6 74 18 143/67 (92) 96 I/O 11/04/17 11/04/17 11/04/17 11/05/17 11/05/17 11/05/17 07:00 15:00 23:00 07:00 15:00 23:00 Intake Total 240 ml 600 ml 120 ml Output Total 1050 ml 1250 ml 725 ml Balance -810 ml -650 ml -605 ml Intake Oral 240 ml 600 ml 120 ml Output Urine Total 1050 ml 1250 ml 725 ml # Bowel Movements 0 2 0 Result Diagram: 11/05/17 0827 11/05/17 0827 Imaging Last Impressions Chest X-Ray 11/03/17 1422 Signed Impressions: Service Date/Time: Friday, November 03, 2017 14:40 - CONCLUSION: 1. Very small left pleural effusion. Stable enlargement of the cardiac silhouette. 2. Chronic linear opacities at the right base most likely represent either atelectasis or scar. Rupesh Max MD Objective Remarks General: Elderly female in no acute distress. Sitting up in a chair. Heart: Regular rate and rhythm. No murmur. Lungs: Decreased breath sounds in the bases. No wheezes, rales, or rhonchi. Breathing is nonlabored. Abdomen: Soft, nontender, nondistended. Extremities: 1+ bilateral lower extremity edema. Wound on right lower leg with sutures in place. Psych: Alert and oriented. Neuro: Normal speech. No focal deficits noted. Procedures None Urinary Catheter: Yes Assessment to: Continue Barboza insert reason: Obstruction/Retention Vascular Central Line Catheter: No A/P Problem List: (1) Acute exacerbation of CHF (congestive heart failure) ICD Code: I50.9 - Heart failure, unspecified Status: Acute (2) Acute on chronic diastolic CHF (congestive heart failure) ICD Code: I50.33 - Acute on chronic diastolic CHF (congestive heart failure) Status: Acute (3) Acute on chronic systolic heart failure ICD Code: I50.23 - Acute on chronic systolic (congestive) heart failure (4) MIHIR (acute kidney injury) ICD Code: N17.9 - MIHIR (acute kidney injury) Status: Acute (5) Gastroesophageal reflux ICD Code: K21.9 - Gastroesophageal reflux Status: Acute (6) Lupus (systemic lupus erythematosus) ICD Code: M32.9 - Lupus (systemic lupus erythematosus) Status: Acute (7) Elevated troponin I level ICD Code: R79.89 - Elevated troponin I level Status: Acute (8) Hypothyroidism ICD Code: E03.9 - Hypothyroidism Status: Acute Assessment and Plan 1. Acute exacerbation of chronic systolic and diastolic congestive heart failure: Diuresing well. Decrease Lasix. Strict intake/output. Monitor on telemetry. Echocardiogram ordered, but not done yet. Appreciate cardiology recommendations. Continue supplemental oxygen. Patient uses 2 L of oxygen at home. 2. Elevated troponin: Serum troponin level is unchanged from ER visit on . Monitor serial cardiac enzymes and EKGs. 3. Acute kidney injury superimposed on chronic kidney disease: Creatinine slightly elevated above patient's baseline. Monitor labs closely with diuresis. 4. Hypothyroidism: TSH significantly elevated. Increase Synthroid. Patient will need repeat thyroid labs in 4-6 weeks. 5. GERD: Continue PPI. 6. Lupus: Continue Plaquenil. 7. Atrial fibrillation: Continue amiodarone. Eliquis for anticoagulation. 8. Urinary retention: Barboza catheter in place. Patient states that she has chronic urinary retention and requires urethral dilatation every few months. Keep Barboza in place at discharge and follow up with Urology as outpatient. 9. DVT prophylaxis: Eliquis. 10. CODE STATUS: DO NOT RESUSCITATE. Discharge Planning Possible discharge tomorrow if improved and OK with cardiology. Problem Qualifiers (1) Acute exacerbation of CHF (congestive heart failure): Qualified Codes: I50.9 - Heart failure, unspecified Ger Fulton MD November 05, 2017 11:21
--- NOTE | 2017-11-05 13:59 | EKG ---
Date Performed: 11/03/2017 Time Performed: 21:44:03 PTAGE: 87 years EKG: ELECTRONIC ATRIAL PACEMAKER ELECTRONIC VENTRICULAR PACEMAKER MARKED ST ELEVATION, CONSIDER LATERAL INJURY PREVIOUS TRACING 11/03/17 Since the previous tracing, no significant change noted DOCTOR: Will Mercado Interpretating Date/Time 11/05/2017 13:57:40
--- NOTE | 2017-11-05 13:59 | EKG ---
Date Performed: 11/03/2017 Time Performed: 14:32:38 PTAGE: 87 years EKG: ELECTRONIC VENTRICULAR PACEMAKER ABNORMAL RHYTHM ECG PREVIOUS TRACING : 10/23/2017 07.57 Since the previous tracing, no significant change noted DOCTOR: Will Mercado Interpretating Date/Time 11/05/2017 13:57:27
--- NOTE | 2017-11-05 17:29 | PD.CARD.PN ---
Objective Medications Current Medications Medications (Trade) Dose Ordered Sig/Harley Route Start Time Stop Time Status Last Admin (NS Flush) 2 ml BID IV FLUSH 11/03/17 21:00 11/05/17 08:53 (NS Flush) 2 ml UNSCH PRN IV FLUSH 11/03/17 17:30 (KCl) 20 meq BID PO 11/03/17 21:00 11/05/17 08:53 (Aspirin Chew) 81 mg DAILY CHEW 11/04/17 09:00 11/05/17 08:52 (Cordarone) 100 mg DAILY PO 11/04/17 09:00 11/05/17 08:53 (Eliquis) 2.5 mg BID PO 11/03/17 21:00 11/05/17 08:54 (Plaquenil) 200 mg DAILY PO 11/04/17 09:00 11/05/17 08:53 (Cozaar) 25 mg DAILY PO 11/04/17 09:00 11/05/17 08:53 (Protonix) 40 mg DAILY PO 11/04/17 09:00 11/05/17 08:52 (Synthroid) 88 mcg DAILY@0600 PO 11/04/17 06:00 11/05/17 06:33 (Pill Splitter) 1 ea UNSCH PRN OTHER 11/03/17 18:30 (Tylenol) 650 mg Q4H PRN PO 11/04/17 02:30 11/05/17 06:33 (Lasix Inj) 40 mg DAILY IVP 11/06/17 09:00 (Maye-Colace) 2 tab BID PO 11/05/17 21:00 (Miralax) 17 gm HS PO 11/05/17 21:00 Vital Signs / I&O Vital Signs Date Time Temp Pulse Resp B/P (MAP) Pulse Ox O2 Delivery O2 Flow Rate FiO2 11/05/17 16:00 71 11/05/17 12:00 70 11/05/17 08:52 99 Nasal Cannula 2.00 11/05/17 08:00 Nasal Cannula 2.00 11/05/17 08:00 97.8 78 18 124/61 (82) 99 11/05/17 08:00 77 11/05/17 04:00 97.6 72 18 128/60 (82) 98 11/05/17 04:00 79 11/05/17 04:00 Nasal Cannula 2.00 11/05/17 00:00 75 11/05/17 00:00 97.6 78 19 138/65 (89) 98 11/05/17 00:00 Nasal Cannula 2.00 11/04/17 20:29 98 Nasal Cannula 2.00 11/04/17 20:00 79 11/04/17 20:00 Nasal Cannula 2.00 11/04/17 20:00 97.2 82 18 123/58 (79) 100 I/O 11/04/17 11/04/17 11/04/17 11/05/17 11/05/17 11/05/17 07:00 15:00 23:00 07:00 15:00 23:00 Intake Total 240 ml 600 ml 120 ml Output Total 1050 ml 1250 ml 725 ml Balance -810 ml -650 ml -605 ml Intake Oral 240 ml 600 ml 120 ml Output Urine Total 1050 ml 1250 ml 725 ml # Bowel Movements 0 2 0 Physical Exam General: Elderly female in no acute distress. Heart: Regular rate and rhythm. No murmur. Lungs: Decreased breath sounds in the bases. No wheezes, rales, or rhonchi. Breathing is nonlabored. Abdomen: Soft, nontender, nondistended. Extremities: 1+ bilateral lower extremity edema. Wound on right lower leg bandaged. Psych: Alert and oriented. Neuro: Normal speech. No focal deficits noted. Laboratory Laboratory Tests Test 11/05/17 08:27 White Blood Count 3.6 TH/MM3 Red Blood Count 3.95 MIL/MM3 Hemoglobin 11.1 GM/DL Hematocrit 34.7 % Mean Corpuscular Volume 88.0 FL Mean Corpuscular Hemoglobin 28.1 PG Mean Corpuscular Hemoglobin Concent 31.9 % Red Cell Distribution Width 17.2 % Platelet Count 230 TH/MM3 Mean Platelet Volume 8.9 FL Neutrophils (%) (Auto) 74.0 % Lymphocytes (%) (Auto) 16.2 % Monocytes (%) (Auto) 8.9 % Eosinophils (%) (Auto) 0.0 % Basophils (%) (Auto) 0.9 % Neutrophils # (Auto) 2.7 TH/MM3 Lymphocytes # (Auto) 0.6 TH/MM3 Monocytes # (Auto) 0.3 TH/MM3 Eosinophils # (Auto) 0.0 TH/MM3 Basophils # (Auto) 0.0 TH/MM3 CBC Comment DIFF FINAL Differential Comment Blood Urea Nitrogen 19 MG/DL Creatinine 1.36 MG/DL Random Glucose 65 MG/DL Calcium Level 8.7 MG/DL Sodium Level 138 MEQ/L Potassium Level 3.5 MEQ/L Chloride Level 95 MEQ/L Carbon Dioxide Level 35.2 MEQ/L Anion Gap 8 MEQ/L Estimat Glomerular Filtration Rate 37 ML/MIN Total Creatine Kinase 134 U/L Creatine Kinase MB 9.0 NG/ML Troponin I 0.14 NG/ML Assessment and Plan Problem List: (1) Chronic a-fib ICD Codes: I48.2 - Chronic atrial fibrillation (2) Systolic CHF, acute on chronic ICD Codes: I50.23 - Acute on chronic systolic (congestive) heart failure (3) Hypothyroidism ICD Codes: E03.9 - Hypothyroidism Status: Acute (4) Gastroesophageal reflux ICD Codes: K21.9 - Gastroesophageal reflux Status: Acute Assessment and Plan 87 yo lady, patient of Dr. Jarvis Horan 1. CHF, systolic, chronic, LVEF 35-40% by Echo 06/20/2017 Continue Lasix. Good diuresis. Cr Stable. Strict intake/output. Echocardiogram ordered, but not done yet. report not yet available. 2. Valvular heart disease Moderate TR AR, mild MR 3. Chronic afib, on 'Eliquis for stroke prevention.Continue amiodarone. 4. Hypothyroidism, slightly high TSH, on Levothyroxine. 5. GERD: Continue PPI. 6. Lupus: Continue Plaquenil. [facility] hydrology technician will resume care of this patient tomorrow. Wing Ruba Medley MD November 05, 2017 17:28
[2017-11-05] MEDS: POLYETHYLENE GLYCOL 17 GM PKG PO SCH (20:48)
[2017-11-05] MEDS: DOCUSATE SODIUM 50 MG/SENNA 8.6 MG TAB PO SCH (20:49)
[2017-11-06] VITALS (12 sets, daily range): BP systolic 107–144; BP diastolic 56–69; PULSE 66–84; RESP 16–22; TEMP 97.3–98; O2SAT 94–100
[2017-11-06] MEDS: LEVOTHYROXINE SODIUM 88 MCG TAB PO SCH (06:07)
--- NOTE | 2017-11-06 07:56 | PD.CARD.PN ---
Subjective Subjective Remarks Patient reports her breathing is better since admission, but still not back to baseline. She states the oxygen helps. She states activity worsens her breathing, although has been getting up to the chair. She is considering SNF. Objective Medications Current Medications Medications (Trade) Dose Ordered Sig/Harley Route Start Time Stop Time Status Last Admin (NS Flush) 2 ml BID IV FLUSH 11/03/17 21:00 11/05/17 20:49 (NS Flush) 2 ml UNSCH PRN IV FLUSH 11/03/17 17:30 (KCl) 20 meq BID PO 11/03/17 21:00 11/05/17 20:49 (Aspirin Chew) 81 mg DAILY CHEW 11/04/17 09:00 11/05/17 08:52 (Cordarone) 100 mg DAILY PO 11/04/17 09:00 11/05/17 08:53 (Eliquis) 2.5 mg BID PO 11/03/17 21:00 11/05/17 20:49 (Plaquenil) 200 mg DAILY PO 11/04/17 09:00 11/05/17 08:53 (Cozaar) 25 mg DAILY PO 11/04/17 09:00 11/05/17 08:53 (Protonix) 40 mg DAILY PO 11/04/17 09:00 11/05/17 08:52 (Synthroid) 88 mcg DAILY@0600 PO 11/04/17 06:00 11/06/17 06:07 (Pill Splitter) 1 ea UNSCH PRN OTHER 11/03/17 18:30 (Tylenol) 650 mg Q4H PRN PO 11/04/17 02:30 11/05/17 17:55 (Lasix Inj) 40 mg DAILY IVP 11/06/17 09:00 (Maye-Colace) 2 tab BID PO 11/05/17 21:00 11/05/17 20:49 (Miralax) 17 gm HS PO 11/05/17 21:00 11/05/17 20:48 Vital Signs / I&O Vital Signs Date Time Temp Pulse Resp B/P (MAP) Pulse Ox O2 Delivery O2 Flow Rate FiO2 11/06/17 04:00 Nasal Cannula 2.00 11/06/17 04:00 97.3 71 18 126/61 (82) 99 11/06/17 03:43 75 11/06/17 00:00 97.8 78 18 139/60 (86) 98 11/06/17 00:00 Nasal Cannula 2.00 11/05/17 23:42 70 11/05/17 20:00 97.4 79 18 104/54 (71) 99 11/05/17 20:00 Nasal Cannula 2.00 11/05/17 19:46 77 11/05/17 16:00 98.0 70 18 123/59 (80) 100 11/05/17 16:00 71 11/05/17 12:00 70 11/05/17 12:00 97.8 80 18 123/58 (79) 98 11/05/17 08:52 99 Nasal Cannula 2.00 11/05/17 08:00 Nasal Cannula 2.00 11/05/17 08:00 97.8 78 18 124/61 (82) 99 11/05/17 08:00 77 I/O 11/05/17 11/05/17 11/05/17 11/06/17 11/06/17 11/06/17 07:00 15:00 23:00 07:00 15:00 23:00 Intake Total 120 ml 600 ml 120 ml Output Total 725 ml 625 ml 0 ml Balance -605 ml -25 ml 120 ml Intake Oral 120 ml 600 ml 120 ml Output Urine Total 725 ml 625 ml 0 ml # Bowel Movements 0 2 1 Physical Exam GENERAL: Well-developed well-nourished. Frail elderly female in no acute distress. NECK: No carotid bruits. No JVD. CARDIOVASCULAR: Regular rate and rhythm. No murmur appreciated. RESPIRATORY: No accessory muscle use. Clear to auscultation. Breath sounds equal bilaterally. MUSCULOSKELETAL: No clubbing or cyanosis. 2+ edema. Sutures in place on right lower extremity wound. NEUROLOGICAL: Awake and alert. Normal speech. Laboratory Laboratory Tests Test 11/05/17 08:27 White Blood Count 3.6 TH/MM3 Red Blood Count 3.95 MIL/MM3 Hemoglobin 11.1 GM/DL Hematocrit 34.7 % Mean Corpuscular Volume 88.0 FL Mean Corpuscular Hemoglobin 28.1 PG Mean Corpuscular Hemoglobin Concent 31.9 % Red Cell Distribution Width 17.2 % Platelet Count 230 TH/MM3 Mean Platelet Volume 8.9 FL Neutrophils (%) (Auto) 74.0 % Lymphocytes (%) (Auto) 16.2 % Monocytes (%) (Auto) 8.9 % Eosinophils (%) (Auto) 0.0 % Basophils (%) (Auto) 0.9 % Neutrophils # (Auto) 2.7 TH/MM3 Lymphocytes # (Auto) 0.6 TH/MM3 Monocytes # (Auto) 0.3 TH/MM3 Eosinophils # (Auto) 0.0 TH/MM3 Basophils # (Auto) 0.0 TH/MM3 CBC Comment DIFF FINAL Differential Comment Blood Urea Nitrogen 19 MG/DL Creatinine 1.36 MG/DL Random Glucose 65 MG/DL Calcium Level 8.7 MG/DL Sodium Level 138 MEQ/L Potassium Level 3.5 MEQ/L Chloride Level 95 MEQ/L Carbon Dioxide Level 35.2 MEQ/L Anion Gap 8 MEQ/L Estimat Glomerular Filtration Rate 37 ML/MIN Total Creatine Kinase 134 U/L Creatine Kinase MB 9.0 NG/ML Troponin I 0.14 NG/ML Imaging Last Impressions Chest X-Ray 11/03/17 1422 Signed Impressions: Service Date/Time: Friday, November 03, 2017 14:40 - CONCLUSION: 1. Very small left pleural effusion. Stable enlargement of the cardiac silhouette. 2. Chronic linear opacities at the right base most likely represent either atelectasis or scar. Rupesh Max MD Assessment and Plan Problem List: (1) Chronic a-fib ICD Codes: I48.2 - Chronic atrial fibrillation (2) Systolic CHF, acute on chronic ICD Codes: I50.23 - Acute on chronic systolic (congestive) heart failure (3) Hypothyroidism ICD Codes: E03.9 - Hypothyroidism Status: Acute (4) Gastroesophageal reflux ICD Codes: K21.9 - Gastroesophageal reflux Status: Acute Assessment and Plan CHF, systolic, chronic, LVEF 35-40% by Echo 06/20/2017 Good diuresis on twice daily Lasix, and creatinine has trended down, however urine output has diminished with Lasix decreased to once a day. Will increase IV Lasix back to twice daily. Follow-up BMP Strict intake/output. Chest x-ray reviewed, cardiomegaly, mildly edematous. Echocardiogram ordered, but not done yet. report not yet available. Chest x-ray in the a.m. Valvular heart disease Moderate TR AR, mild MR Echocardiogram pending Chronic afib Continue on Eliquis for stroke prevention. Continue amiodarone for rhythm control. Discussed Condition With Patient seen and examined with Chacho Alexander November 06, 2017 07:56
[2017-11-06 08:48] LABS: BICARBONATE 36.3 MEQ/L (21.0-32.0); CALCIUM 8.8 MG/DL (8.5-10.1); CREATININE 1.45 MG/DL (0.50-1.00)
[2017-11-06] MEDS: POTASSIUM CHLORIDE 20 MEQ CONTROLLED RELEASE TAB PO SCH ×2 (09:00→21:08)
[2017-11-06] MEDS ORDERED: FUROSEMIDE 40 MG/4 ML VIAL IVP SCH (09:00)
[2017-11-06] MEDS: LOSARTAN 25 MG TAB PO SCH (09:19)
[2017-11-06] MEDS: DOCUSATE SODIUM 50 MG/SENNA 8.6 MG TAB PO SCH ×2 (09:20→21:08)
[2017-11-06] MEDS: ASPIRIN 81 MG CHEW TAB CHEW SCH (09:20)
[2017-11-06] MEDS: PANTOPRAZOLE SOD 40 MG DELAYED RELEASE TAB PO SCH (09:20)
[2017-11-06] MEDS: AMIODARONE 200 MG TAB PO SCH (09:20)
[2017-11-06] MEDS: APIXABAN 2.5 MG TABLET PO SCH ×2 (09:20→21:08)
[2017-11-06] MEDS: HYDROXYCHLOROQUINE SULFATE 200 MG TAB PO SCH (09:21)
[2017-11-06] MEDS: SODIUM CHLORIDE 0.9% FLUSH 10 ML FLUSH IV FLUSH SCH ×2 (09:21→21:10)
[2017-11-06] MEDS: FUROSEMIDE 40 MG/4 ML VIAL IV PUSH SCH ×2 (09:21→18:14)
--- NOTE | 2017-11-06 13:13 | ECHRPT ---
Indication: HEART FAILURE CONCLUSIONS Normal left ventricular size. Wall thickness is measured at the upper limits of normal. The left ventricular systolic function is severely reduced with an estimated ejection fraction in th e range of 30-35%. Large area of apical hypokinesis. A pacemaker wire is noted. The left atrial size is vornhnqf-yb-feppobmh dilated. Atrial septal aneurysm is present (benign finding). Moderate mitral annular calcification. Mild thickening of the mitral valve leaflets. Iscp-[id number] mitral valve regurgitation. Aortic valve sclerosis is present. Mild aortic valve regurgitation. There is mild to moderate tricuspid valve regurgitation. The estimated pulmonary arterial pressure is 58 mmHg. Mild pulmonary valve regurgitation. There is a small pericardial effusion present. BP: 139 / 60 HR: 80 Rhythm: Sinus MEASUREMENTS (Male / Female) Normal Values Technical Quality:Fair 2D ECHO LV Diastolic Diameter PLAX 5.1 cm 4.2 - 5.9 / 3.9 - 5.3 cm LV Systolic Diameter PLAX 4.2 cm IVS Diastolic Thickness 1.0 cm 0.6 - 1.0 / 0.6 - 0.9 cm LVPW Diastolic Thickness 1.0 cm 0.6 - 1.0 / 0.6 - 0.9 cm LV Relative Wall Thickness 0.4 RV Internal Dim ED PLAX 2.3 cm LVOT Diameter 1.9 cm Aortic Root Diameter 3.0 cm LA Systolic Diameter LX 4.8 cm 3.0 - 4.0 / 2.7 - 3.8 cm M-MODE AV Cusp Separation MM 1.9 cm DOPPLER AV Peak Velocity 101.0 cm/s AV Peak Gradient 4.1 mmHg AV Mean Gradient 2.0 mmHg AV Velocity Time Integral 19.0 cm AI Peak Velocity 380.0 cm/s AI Peak Gradient 57.8 mmHg AI Pressure Half Time 372.0 ms LVOT Peak Velocity 54.1 cm/s LVOT Peak Gradient 1.2 mmHg LVOT Velocity Time Integral 10.5 cm AV Area Cont Eq vti 1.6 cm AV Area Cont Eq pk 1.5 cm Mitral E Point Velocity 109.0 cm/s Mitral A Point Velocity 53.8 cm/s Mitral E to A Ratio 2.0 LV E' Lateral Velocity 8.4 cm/s Mitral E to LV E' Lateral Ratio 12.9 LV E' Septal Velocity 5.1 cm/s Mitral E to LV E' Septal Ratio 21.5 TR Peak Velocity 388.0 cm/s TR Peak Gradient 60.2 mmHg Right Atrial Pressure 10.0 mmHg Pulmonary Artery Systolic Pressu 70.2 mmHg Right Ventricular Systolic Press 70.2 mmHg PV Peak Velocity 41.4 cm/s PV Peak Gradient 0.7 mmHg FINDINGS LEFT VENTRICLE Normal left ventricular size. Wall thickness is measured at the upper limits of normal. The left ventricular systolic function is moderately to severely reduced with an estimated ejection fraction in the range of 30-35%. Large area of apical hypokinesis. RIGHT VENTRICLE Normal right ventricular size and systolic function. A pacemaker wire is noted. LEFT ATRIUM The left atrial size is idyjunhm-ka-wqlgkitf dilated. RIGHT ATRIUM There is a pacemaker wire present in the right atrial cavity. ATRIAL SEPTUM Atrial septal aneurysm is present (benign finding). AORTA The aortic root and proximal ascending aorta are normal in size on limited imaging. MITRAL VALVE Moderate mitral annular calcification. Mild thickening of the mitral valve leaflets. Byle-nl-rzxgitsr mitral valve regurgitation. AORTIC VALVE Aortic valve sclerosis is present. Mild aortic valve regurgitation. TRICUSPID VALVE There is mild to moderate tricuspid valve regurgitation. The estimated pulmonary arterial pressure is 58 mmHg. PULMONARY VALVE Mild pulmonary valve regurgitation. PERICARDIUM There is a small pericardial effusion present. Lashawn Wren MD, FACC (Electronically Signed) Final Date:06 Nov 2017 13:12
--- NOTE | 2017-11-06 14:15 | HHI.PR ---
Subjective Remarks Follow up CHF exacerbation. Patient states that she feels much better than when she came to the hospital. Denies chest pain. Less dyspnea today. Objective Vitals Vital Signs Date Time Temp Pulse Resp B/P (MAP) Pulse Ox O2 Delivery O2 Flow Rate FiO2 11/06/17 10:46 Nasal Cannula 2.00 11/06/17 08:00 66 11/06/17 07:45 97.4 80 22 144/69 (94) 96 11/06/17 07:43 95 Nasal Cannula 2.00 11/06/17 04:00 Nasal Cannula 2.00 11/06/17 04:00 97.3 71 18 126/61 (82) 99 11/06/17 03:43 75 11/06/17 00:00 97.8 78 18 139/60 (86) 98 11/06/17 00:00 Nasal Cannula 2.00 11/05/17 23:42 70 11/05/17 20:00 97.4 79 18 104/54 (71) 99 11/05/17 20:00 Nasal Cannula 2.00 11/05/17 19:46 77 11/05/17 16:00 98.0 70 18 123/59 (80) 100 11/05/17 16:00 71 I/O 11/05/17 11/05/17 11/05/17 11/06/17 11/06/17 11/06/17 07:00 15:00 23:00 07:00 15:00 23:00 Intake Total 120 ml 600 ml 120 ml Output Total 725 ml 625 ml 0 ml Balance -605 ml -25 ml 120 ml Intake Oral 120 ml 600 ml 120 ml Output Urine Total 725 ml 625 ml 0 ml # Bowel Movements 0 2 1 Result Diagram: 11/05/17 0827 11/06/17 0755 Imaging Last Impressions Chest X-Ray 11/03/17 1422 Signed Impressions: Service Date/Time: Friday, November 03, 2017 14:40 - CONCLUSION: 1. Very small left pleural effusion. Stable enlargement of the cardiac silhouette. 2. Chronic linear opacities at the right base most likely represent either atelectasis or scar. Rupesh Max MD Objective Remarks General: Elderly female in no acute distress. Heart: Regular rate and rhythm. No murmur. Lungs: Decreased breath sounds in the bases. No wheezes, rales, or rhonchi. Breathing is nonlabored. Abdomen: Soft, nontender, nondistended. Extremities: 1+ bilateral lower extremity edema. Wound on right lower leg with sutures in place. Psych: Alert and oriented. Neuro: Normal speech. No focal deficits noted. Procedures None Urinary Catheter: Yes Assessment to: Continue Barboza insert reason: Obstruction/Retention Vascular Central Line Catheter: No A/P Problem List: (1) Acute exacerbation of CHF (congestive heart failure) ICD Code: I50.9 - Heart failure, unspecified Status: Acute (2) Acute on chronic diastolic CHF (congestive heart failure) ICD Code: I50.33 - Acute on chronic diastolic CHF (congestive heart failure) Status: Acute (3) Acute on chronic systolic heart failure ICD Code: I50.23 - Acute on chronic systolic (congestive) heart failure (4) MIHIR (acute kidney injury) ICD Code: N17.9 - MIHIR (acute kidney injury) Status: Acute (5) Gastroesophageal reflux ICD Code: K21.9 - Gastroesophageal reflux Status: Acute (6) Lupus (systemic lupus erythematosus) ICD Code: M32.9 - Lupus (systemic lupus erythematosus) Status: Acute (7) Elevated troponin I level ICD Code: R79.89 - Elevated troponin I level Status: Acute (8) Hypothyroidism ICD Code: E03.9 - Hypothyroidism Status: Acute Assessment and Plan 1. Acute exacerbation of chronic systolic and diastolic congestive heart failure: Diuresing well. Strict intake/output. Monitor on telemetry. Echocardiogram ordered, but not done yet. Appreciate cardiology recommendations. Continue supplemental oxygen. Patient uses 2 L of oxygen at home. Continue Lasix. Repeat CXR ordered for tomorrow. 2. Elevated troponin: Serum troponin level is unchanged from ER visit on . Monitor serial cardiac enzymes and EKGs. 3. Acute kidney injury superimposed on chronic kidney disease: Creatinine slightly elevated above patient's baseline. Monitor labs closely with diuresis. 4. Hypothyroidism: TSH significantly elevated. Increase Synthroid. Patient will need repeat thyroid labs in 4-6 weeks. 5. GERD: Continue PPI. 6. Lupus: Continue Plaquenil. 7. Atrial fibrillation: Continue amiodarone. Eliquis for anticoagulation. 8. Urinary retention: Barboza catheter in place. Patient states that she has chronic urinary retention and requires urethral dilatation every few months. Keep Barboza in place at discharge and follow up with Urology as outpatient. 9. DVT prophylaxis: Eliquis. 10. CODE STATUS: DO NOT RESUSCITATE. Discharge Planning Possible discharge tomorrow if improved and OK with cardiology. Problem Qualifiers (1) Acute exacerbation of CHF (congestive heart failure): Qualified Codes: I50.9 - Heart failure, unspecified Ger Fulton MD November 06, 2017 14:14
[2017-11-06] MEDS: POLYETHYLENE GLYCOL 17 GM PKG PO SCH (21:08)
[2017-11-06] MEDS: ACETAMINOPHEN 325 MG TAB PO PRN (21:09)
[2017-11-07] VITALS (7 sets, daily range): BP systolic 112–135; BP diastolic 57–64; PULSE 71–81; RESP 16–20; TEMP 97.5–97.7; O2SAT 95–100
--- NOTE | 2017-11-07 06:01 | RADRPT ---
EXAM DATE/TIME: 11/07/2017 05:23 [facility] COMPARISON: CHEST SINGLE AP, November 03, 2017, 14:40. INDICATIONS : Short of breath, back pain MEDICAL HISTORY : Congestive heart failure. Cardiovascular disease. SURGICAL HISTORY : Pacemaker. ENCOUNTER: Subsequent ACUITY: 2 days PAIN SCORE: 3/10 LOCATION: Bilateral chest FINDINGS: A single view of the chest demonstrates the cardiac silhouette is widened. This was occluded and bipo lar pacer. There are small bilateral pleural effusions. The aorta quite tortuous. Osseous structures are intact. CONCLUSION: The cardiac silhouette is widened. Pacemaker in good position. Jamey Peters MD on November 07, 2017 at 5:59 Board Certified Radiologist. This report was verified electronically.
[2017-11-07] MEDS: LEVOTHYROXINE SODIUM 88 MCG TAB PO SCH (06:02)
[2017-11-07] MEDS: ACETAMINOPHEN 325 MG TAB PO PRN (06:05)
--- NOTE | 2017-11-07 07:14 | PD.CARD.PN ---
Subjective Subjective Remarks Feels better. Breathing improved. Still quite weak. Objective Medications Current Medications Medications (Trade) Dose Ordered Sig/Harley Route Start Time Stop Time Status Last Admin (NS Flush) 2 ml BID IV FLUSH 11/03/17 21:00 11/06/17 21:10 (NS Flush) 2 ml UNSCH PRN IV FLUSH 11/03/17 17:30 (KCl) 20 meq BID PO 11/03/17 21:00 11/06/17 21:08 (Aspirin Chew) 81 mg DAILY CHEW 11/04/17 09:00 11/06/17 09:20 (Cordarone) 100 mg DAILY PO 11/04/17 09:00 11/06/17 09:20 (Eliquis) 2.5 mg BID PO 11/03/17 21:00 11/06/17 21:08 (Plaquenil) 200 mg DAILY PO 11/04/17 09:00 11/06/17 09:21 (Cozaar) 25 mg DAILY PO 11/04/17 09:00 11/06/17 09:19 (Protonix) 40 mg DAILY PO 11/04/17 09:00 11/06/17 09:20 (Synthroid) 88 mcg DAILY@0600 PO 11/04/17 06:00 11/07/17 06:02 (Pill Splitter) 1 ea UNSCH PRN OTHER 11/03/17 18:30 (Tylenol) 650 mg Q4H PRN PO 11/04/17 02:30 11/07/17 06:05 (Maye-Colace) 2 tab BID PO 11/05/17 21:00 11/06/17 21:08 (Miralax) 17 gm HS PO 11/05/17 21:00 11/06/17 21:08 (Lasix Inj) 40 mg BID@,18 IV PUSH 11/06/17 09:00 11/06/17 18:14 Vital Signs / I&O Vital Signs Date Time Temp Pulse Resp B/P (MAP) Pulse Ox O2 Delivery O2 Flow Rate FiO2 11/07/17 04:55 97.5 76 16 125/60 (81) 95 11/07/17 04:06 76 11/07/17 04:00 Nasal Cannula 2.00 11/07/17 00:25 72 11/07/17 00:18 97.7 81 16 112/58 (76) 100 11/07/17 00:00 Nasal Cannula 2.00 11/06/17 20:54 98.0 84 16 107/56 (73) 100 11/06/17 20:25 Nasal Cannula 2.00 11/06/17 20:19 79 11/06/17 20:00 Nasal Cannula 2.00 11/06/17 18:33 Nasal Cannula 2.00 11/06/17 17:00 71 11/06/17 15:45 97.4 78 20 125/60 (81) 94 11/06/17 12:00 72 11/06/17 11:53 98.0 80 22 123/59 (80) 100 11/06/17 10:46 Nasal Cannula 2.00 11/06/17 08:00 66 11/06/17 07:45 97.4 80 22 144/69 (94) 96 11/06/17 07:43 95 Nasal Cannula 2.00 I/O 11/06/17 11/06/17 11/06/17 11/07/17 11/07/17 11/07/17 06:59 14:59 22:59 06:59 14:59 22:59 Intake Total 120 ml 600 ml 0 ml Output Total 0 ml 1200 ml 1000 ml Balance 120 ml -600 ml -1000 ml Intake Oral 120 ml 600 ml 0 ml Output Urine Total 0 ml 1200 ml 1000 ml # Bowel Movements 1 1 0 Physical Exam Lungs clear RRR. Paced Laboratory Laboratory Tests Test 11/06/17 07:55 Blood Urea Nitrogen 20 MG/DL Creatinine 1.45 MG/DL Random Glucose 78 MG/DL Calcium Level 8.8 MG/DL Sodium Level 136 MEQ/L Potassium Level 4.8 MEQ/L Chloride Level 97 MEQ/L Carbon Dioxide Level 36.3 MEQ/L Anion Gap 3 MEQ/L Estimat Glomerular Filtration Rate 34 ML/MIN Imaging Last 24 hours Impressions Chest X-Ray 11/07/17 0600 Signed Impressions: Service Date/Time: Tuesday, November 07, 2017 05:23 - CONCLUSION: The cardiac silhouette is widened. Pacemaker in good position. Jamey Peters MD Assessment and Plan Problem List: (1) Chronic a-fib ICD Codes: I48.2 - Chronic atrial fibrillation (2) Systolic CHF, acute on chronic ICD Codes: I50.23 - Acute on chronic systolic (congestive) heart failure Plan: Will switch to p.o. furosemide. Cxr shows resolution of CHF. OK to consider transfer to nursing facility (3) Hypothyroidism ICD Codes: E03.9 - Hypothyroidism Status: Acute (4) Gastroesophageal reflux ICD Codes: K21.9 - Gastroesophageal reflux Status: Acute Hector Horan MD November 07, 2017 07:14
[2017-11-07 08:07] LABS: BICARBONATE 35.2 MEQ/L (21.0-32.0); CALCIUM 8.9 MG/DL (8.5-10.1); CREATININE 1.37 MG/DL (0.50-1.00)
[2017-11-07] MEDS ORDERED: FUROSEMIDE 40 MG TAB PO SCH (09:00)
[2017-11-07] MEDS: LOSARTAN 25 MG TAB PO SCH (09:00)
[2017-11-07] MEDS: PANTOPRAZOLE SOD 40 MG DELAYED RELEASE TAB PO SCH (09:52)
[2017-11-07] MEDS: HYDROXYCHLOROQUINE SULFATE 200 MG TAB PO SCH (09:52)
[2017-11-07] MEDS: ASPIRIN 81 MG CHEW TAB CHEW SCH (09:52)
[2017-11-07] MEDS: APIXABAN 2.5 MG TABLET PO SCH (09:52)
[2017-11-07] MEDS: DOCUSATE SODIUM 50 MG/SENNA 8.6 MG TAB PO SCH (09:52)
[2017-11-07] MEDS: AMIODARONE 200 MG TAB PO SCH (09:52)
[2017-11-07] MEDS: POTASSIUM CHLORIDE 20 MEQ CONTROLLED RELEASE TAB PO SCH (09:53)
[2017-11-07] MEDS: SODIUM CHLORIDE 0.9% FLUSH 10 ML FLUSH IV FLUSH SCH (09:55)
[2017-11-07] MEDS ORDERED: FURO40TA PO (10:06)
[2017-11-07] MEDS ORDERED: SYNT88TA PO (10:06)
[2017-11-07] MEDS ORDERED: POLY17S PO (10:06)
[2017-11-07] MEDS ORDERED: POTA20TA5 PO (10:06)
[2017-11-07] MEDS ORDERED: PERI PO (10:06)
--- NOTE | 2017-11-07 10:06 | HHI.DCPOC ---
Discharge Care Plan Diagnosis: (1) Systolic CHF, acute on chronic (2) Chronic a-fib (3) Hypothyroidism (4) Gastroesophageal reflux (5) Elevated troponin I level (6) Acute on chronic diastolic CHF (congestive heart failure) (7) Lupus (systemic lupus erythematosus) (8) MIHIR (acute kidney injury) Goals to Promote Your Health * To prevent worsening of your condition and complications * To maintain your health at the optimal level Directions to Meet Your Goals Take your medications as prescribed Follow your dietary instruction Follow activity as directed Keep your appointments as scheduled Take your immunizations and boosters as scheduled If your symptoms worsen call your PCP, if no PCP go to Urgent Care Center or Emergency Room Smoking is Dangerous to Your Health. Avoid second hand smoke Call the 24-hour hour crisis hotline for domestic abuse at Ger Fulton MD November 07, 2017 10:06
--- NOTE | 2017-11-07 10:21 | HHI.DS ---
cc: Bruno Seymour MD Discharge Summary Admission Date November 03, 2017 at 17:21 Discharge Date: November 07, 2017 Admitting Diagnosis acute CHF exacerbation, failed outpatient treatment (1) Acute exacerbation of CHF (congestive heart failure) ICD Code: I50.9 - Heart failure, unspecified Status: Acute (2) Acute on chronic diastolic CHF (congestive heart failure) ICD Code: I50.33 - Acute on chronic diastolic CHF (congestive heart failure) Status: Acute (3) Acute on chronic systolic heart failure ICD Code: I50.23 - Acute on chronic systolic (congestive) heart failure (4) MIHIR (acute kidney injury) ICD Code: N17.9 - MIHIR (acute kidney injury) Status: Acute (5) Gastroesophageal reflux ICD Code: K21.9 - Gastroesophageal reflux Status: Acute (6) Lupus (systemic lupus erythematosus) ICD Code: M32.9 - Lupus (systemic lupus erythematosus) Status: Acute (7) Elevated troponin I level ICD Code: R79.89 - Elevated troponin I level Status: Acute (8) Hypothyroidism ICD Code: E03.9 - Hypothyroidism Status: Acute Procedures None Brief History - From Admission The patient is an 87 year old female with history of CHF who presented with complaint of worsening dyspnea and lower extremity swelling. She was seen in the ER on 10/23/17 for similar symptoms. At that time she declined admission and was seen as outpatient by her senior nurse manager. Her Lasix was increased, but her symptoms have not improved. She denies chest pain. CBC/BMP: 11/05/17 0827 11/07/17 0600 Significant Findings Laboratory Tests Test 11/05/17 08:27 11/06/17 07:55 11/07/17 06:00 White Blood Count 3.6 TH/MM3 (4.0-11.0) Red Blood Count 3.95 MIL/MM3 (4.00-5.30) Hemoglobin 11.1 GM/DL (11.6-15.3) Hematocrit 34.7 % (35.0-46.0) Mean Corpuscular Hemoglobin Concent 31.9 % (32.0-36.0) Neutrophils (%) (Auto) 74.0 % (16.0-70.0) Monocytes (%) (Auto) 8.9 % (0.0-8.0) Lymphocytes # (Auto) 0.6 TH/MM3 (1.0-4.8) Blood Urea Nitrogen 19 MG/DL (7-18) 20 MG/DL (7-18) 22 MG/DL (7-18) Creatinine 1.36 MG/DL (0.50-1.00) 1.45 MG/DL (0.50-1.00) 1.37 MG/DL (0.50-1.00) Random Glucose 65 MG/DL (74-106) 67 MG/DL (74-106) Chloride Level 95 MEQ/L (98-107) 97 MEQ/L (98-107) 94 MEQ/L (98-107) Carbon Dioxide Level 35.2 MEQ/L (21.0-32.0) 36.3 MEQ/L (21.0-32.0) 35.2 MEQ/L (21.0-32.0) Estimat Glomerular Filtration Rate 37 ML/MIN (>89) 34 ML/MIN (>89) 36 ML/MIN (>89) Creatine Kinase MB 9.0 NG/ML (0.5-3.6) Troponin I 0.14 NG/ML (0.02-0.05) Anion Gap 3 MEQ/L (5-15) Imaging Last Impressions Chest X-Ray 11/07/17 0600 Signed Impressions: Service Date/Time: Tuesday, November 07, 2017 05:23 - CONCLUSION: The cardiac silhouette is widened. Pacemaker in good position. Jamey Peters MD PE at Discharge General: Elderly female in no acute distress. Sitting up in a chair. Heart: Regular rate and rhythm. No murmur. Lungs: Decreased breath sounds in the bases. No wheezes, rales, or rhonchi. Breathing is nonlabored. Abdomen: Soft, nontender, nondistended. Extremities: 1+ bilateral ankle edema. Wound on right lower leg with sutures in place. Psych: Alert and oriented. Neuro: Normal speech. No focal deficits noted. Pt update on day of discharge Patient feels better today. Ready to go to rehab. No chest pain. Dyspnea is improved, but "I haven't really been exerting myself much". Hospital Course The patient was admitted for acute exacerbation of congestive heart failure. She was continued on Lasix for diuresis. Echocardiogram was done. Cardiology was consulted. The patient's oxygen requirement decreased to her baseline of 2 L, which she uses at home. She diuresed well. Symptoms improved. Barboza catheter was placed for urinary retention. She was advised to follow-up with urology as this is a chronic issue. Upon admission, her TSH was noted to be quite elevated. Her Synthroid dose was increased and she was advised to have follow-up labs in 4-6 weeks. She improved clinically throughout the hospitalization and was cleared for discharge by cardiology. She was felt to be stable for discharge to SNF. Pt Condition on Discharge: Stable Discharge Disposition: Discharge to SNF Discharge Time: > 30 minutes Discharge Instructions DIET: Follow Instructions for: Heart Healthy Diet Activities you can perform: Regular-No Restrictions Follow up Referrals: Cardiology - 1 Week with Hector Horan MD PCP Follow-up - 2 Weeks with Bruno Seymour MD New Medications: Furosemide (Furosemide) 40 Mg Tab 40 MG PO BID@09,18 for diuretic, #60 TAB 0 Refills Levothyroxine (Synthroid) 88 Mcg Tab 88 MCG PO DAILY@0600 for Thyroid, #30 TAB 0 Refills Polyethylene Glycol 3350 Powder (Polyethylene Glycol 3350 Powder) 17 Gram Pow 17 GM PO HS for Constipation for 30 Days, #30 PKT 0 Refills Potassium Chloride Microencaps (Potassium Chloride Microencaps) 20 Meq Tab 20 MEQ PO BID for Electrolyte Replacement, #60 TAB 0 Refills Sennosides-Docusate Sodium (Gnp Senna Plus 8.6-50 mg) 8.6 Mg-50 Mg Tab 2 TAB PO BID for Constipation, #60 TAB 0 Refills Continued Medications: Amiodarone (Amiodarone) 200 Mg Tab 100 MG PO DAILY for Regulate Heart Beat, #30 TAB 0 Refills Apixaban (Eliquis) 2.5 Mg Tab 2.5 MG PO BID for Blood Clot Prevention, TAB 0 Refills Aspirin (Aspirin) 81 Mg Chew 81 MG PO DAILY, TAB 0 Refills Hydroxychloroquine (Plaquenil) 200 Mg Tab 200 MG PO DAILY, #30 TAB 0 Refills Take with food Losartan (Cozaar) 25 Mg Tab 25 MG PO DAILY for Blood Pressure Management, #30 TAB 0 Refills Pantoprazole (Pantoprazole) 40 Mg Tab 40 MG PO DAILY for Reflux, #30 TAB 0 Refills Discontinued Medications: Febuxostat (Uloric) 40 Mg Tab TAB PO EVERY OTHER DAY Furosemide (Furosemide) 40 Mg Tab 20 MG PO BID, #60 TAB 0 Refills Levothyroxine (Synthroid) 75 Mcg Tab 75 MCG PO DAILY for Thyroid, #30 TAB 0 Refills Ger Fulton MD November 07, 2017 10:21
== END 2017-11-07 12:40 | DRG 291 ==
LOC: NEPC 14:14 → NEDA 17:17 → OBSVTOIN 17:21 → N04B 18:30
PROVIDERS: ADMIT Family Medicine; ATTEND Family Medicine
DX: I13.0 Hypertensive heart and chronic kidney disease with heart failure and stage 1 through stage 4 chronic kidney disease, or unspecified chronic kidney disease (principal); I50.43 Acute on chronic combined systolic (congestive) and diastolic (congestive) heart failure; N17.9 Acute kidney failure, unspecified; M32.9 Systemic lupus erythematosus, unspecified; Z99.81 Dependence on supplemental oxygen; I48.2 Chronic atrial fibrillation; E03.9 Hypothyroidism, unspecified; K21.9 Gastro-esophageal reflux disease without esophagitis; Z66 Do not resuscitate; N18.9 Chronic kidney disease, unspecified; I25.10 Atherosclerotic heart disease of native coronary artery without angina pectoris; Z95.5 Presence of coronary angioplasty implant and graft; E78.00 Pure hypercholesterolemia, unspecified; Z86.73 Personal history of transient ischemic attack (TIA), and cerebral infarction without residual deficits; Z95.0 Presence of cardiac pacemaker; D64.9 Anemia, unspecified; M19.90 Unspecified osteoarthritis, unspecified site; M79.89 Other specified soft tissue disorders; R33.9 Retention of urine, unspecified; R53.1 Weakness; Z88.8 Allergy status to other drugs, medicaments and biological substances; Z79.01 Long term (current) use of anticoagulants; Z79.82 Long term (current) use of aspirin
CPT/HCPCS: 71045; 80048; 80053; 82550; 82552; 83735; 83880; 84443; 84484; 85025; 85610; 85730; 93005; 93306; J1940